=== PATIENT | female | born 1940 | race Caucasian/White ===

== ENCOUNTER → 2017-08-22 | Outpatient (CLI) | payer MEDICARE, BC ==
[2015-03-08 11:47] VITALS: BMI 40.2
[~2017-08-22] MED LIST: AMLO2.5T75 PO; ANAS1TAB34 PO; ATOR20TA22 PO; ATR80PT PO; BEN100 PO; CALC1TAB32 PO; CALC500T6 PO; CALCIUM PO; CEFA-162 PO; CHOL100058 PO; COM14R INH; DICY10CA11 PO; DICY20TA70 PO; DOCU-416 PO; FOL1 PO; HYDR12.561 PO; HYO375 PO; IRON1TAB10 PO; IRON1TAB4 PO; LOR5 PO; LOSA50TA72 PO; MULT-1335 PO; MULT1TAB64 PO; NAPR220C12 PO; OXYC-854 PO; OXYC-865 PO; PEG4000S17 PO; PRE10 PO; RIVA10TA PO; SUL500 PO
[2017-08-22 08:56] VITALS: BP 173/96
== END ==
LOC: SPU 07:39
PROVIDERS: ATTEND Nurse Practitioner Family
DX: E78.5 Hyperlipidemia, unspecified (principal); I10 Essential (primary) hypertension
CPT/HCPCS: 36415; 82465; 83718; 84443; 84478

== ENCOUNTER 2017-08-27 00:13 | Day surgery (SDC) | payer MEDICARE, BC ==
[2015-03-08 11:47] VITALS: Ht 157.5 cm; Wt 91.2 kg
[~2017-08-27] VITALS: Ht 157.5 cm; Wt 91.2 kg
[2017-08-27] MEDS ORDERED: PROPOFOL EMUL(*) 10MG/ML 20 ML 20 ML ONE ×2 (07:04→09:29)
[2017-08-27 07:35] VITALS: BP 144/87
[2017-08-27] MEDS ORDERED: MIDAZOLAM 2 MG/2 ML VIAL IVP PRN (08:45)
[2017-08-27] MEDS ORDERED: LIDOCAINE/SOD BICARB 8.4% SYR ID ONE (08:45)
[2017-08-27] MEDS ORDERED: NORMOSOL R SOLN(*) 1000 ML BAG 1,000 ML IV PRN (08:45)
[2017-08-27 09:53] VITALS: BP 116/64
[2017-08-27 10:00] VITALS: BP 123/76
--- NOTE | 2017-08-27 10:01 | Short(Outpt) Discharge Summary ---
Discharge Summary Reason for Hosp/Final Diag: (1) Colon cancer screening Status: Chronic Hospital Course & Plan: Colonoscopy with polypectomy x2 completed without problems. Departure Discharge to: Home, Self Care Discharge Instructions Home Meds Active Scripts Hydrochlorothiazide (HYDROCHLOROTHIAZIDE) 12.5 Mg Tablet, 1 TAB PO QDAY, #90 TAB 1 Refill Prov:WILBUR LOPEZ [facility]-C 08/12/17 Peg 3350/Na Sulf,Bicarb,Cl/Kcl (GAVILYTE-C SOLUTION) 4,000 Ml Soln.recon, 1 GAL PO ONCE, #1 GAL 0 Refills Prov:SAI CORREA MD 08/08/17 Anastrozole (ANASTROZOLE) 1 Mg Tablet, 1 MG PO DAILY, #90 MG 3 Refills Prov:SOPHY [facility] ATTORNEY-BC, ONC 05/12/17 Reported Medications Dicyclomine Hcl (DICYCLOMINE HCL) 20 Mg Tablet, 0.5 MG PO DAILY 07/14/17 Atorvastatin Calcium (LIPITOR) 20 Mg Tablet, 1 TAB PO QDAY, TAB 07/14/17 Iron,Carbonyl/Ascorbic Acid (IRON 100-VITAMIN C TABLET) 1 Each Tablet, 1 EACH PO QDAY 01/07/17 Calcium Carb & Cit/Vitamin D3 (CALCIUM + D3 ER TABLET) 1 Each Tablet.er, 1 TAB PO DAILY 01/07/17 Naproxen Sodium (ALEVE) Unknown Strength Capsule, PO QDAY, CAPSULE 01/07/17 Losartan Potassium (LOSARTAN POTASSIUM) 50 Mg Tablet, 50 MG PO QDAY 09/12/16 Multivitamin (MULTI VITAMIN DAILY) 1 Each Tablet, 1 EACH PO DAILY 02/13/16 Folic Acid (Folic Acid) 1 Mg Tab, 1 MG PO QDAY 09/23/10 Sulfasalazine (Azulfidine (Or Equiv)) 500 Mg Tab, 500 MG PO DAILY 09/23/10 Diet: Regular Activity: As Tolerated Special Instructions: Your colonoscopy was completed without problems and your prep was excellent (Good Job!!). I removed 2 polyps from your colon and they were sent to pathology for analysis. My office will call you in the next week to let you know what the polyps are and when your next colonoscopy should be (either 5 or 10 years depending on the pathology results). SAI CORREA MD Aug 27, 2017 10:01
[2017-08-27 10:15] VITALS: BP 135/70
[2017-08-27 10:21] VITALS: BP 135/77
[2017-08-27 10:25] VITALS: BP 125/72
== END 2017-08-27 10:40 | disposition home or self-care (01) ==
LOC: OR 00:13
PROVIDERS: ATTEND Surgery
DX: Z12.11 Encounter for screening for malignant neoplasm of colon (principal); D12.5 Benign neoplasm of sigmoid colon; K63.5 Polyp of colon
CPT/HCPCS: 00811; 45385; 88305; J2704

== ENCOUNTER 2017-08-28 13:22 | Outpatient (RCR) | payer MEDICARE, BC ==
[2015-03-08 11:47] VITALS: Wt 93.0 kg
[2017-08-22 09:00] LABS: PLATELET COUNT, AUTOMATED 230 K/uL (150-450)
[2017-08-28 13:27] VITALS: BP 148/83
--- NOTE | 2017-08-28 18:37 | ONCOLOGY FOLLOW UP NOTE ---
EVENT DATE: August 28, 2017 DIAGNOSES 1. Left breast cancer. 2. Hypertension. 3. Hypercholesterolemia. CHIEF COMPLAINT Patient is here today for followup of her left breast cancer. ONCOLOGY HISTORY The patient is a 76-year-old female who was found to have abnormal mammogram of the left breast. The patient ended by having left breast biopsy done on January 16, 2016 and the biopsy came back positive for infiltrating ductal carcinoma, grade II-III. ER positive 84.1%, UT positive 84.3%. HER2/reinaldo negative. Ki-67 was 3.6 and p53 was 0.1%. The patient, after that, had wire localization lumpectomy and sentinel lymph node biopsy done on February 22, 2016. The pathology came back positive for 1.1 cm invasive ductal carcinoma, well- differentiated. Three sentinel lymph nodes came back negative; so, her tumor in general was positive for invasive ductal carcinoma, grade I, well- differentiated. The size of the tumor is 0.6 cm. Additional margins were taken also and came back negative. Three sentinel lymph nodes came back negative for metastasis. So, her tumor was staged as stage IA (pt1b N0 M0). The patient received adjuvant radiation therapy and tolerated treatment very well. She started adjuvant hormonal therapy with Arimidex 1 mg daily on May 23, 2016. HISTORY OF PRESENT ILLNESS Patient is here today for followup of her left breast cancer. Ignacia is doing very well currently except for arthritis mainly in her back and knees, but other than that, she is really doing very well. She had her colonoscopy done on August 27, 2017 and it was normal as per patient. PAST MEDICAL HISTORY Hypertension. PAST SURGICAL HISTORY 1. Left hip replacement. 2. Right knee replacement. 3. Tonsillectomy. 4. Right shoulder repair. 5. Appendectomy. FAMILY HISTORY Negative for cancer or blood diseases. SOCIAL HISTORY The patient is a with two children. 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 She quit smoking in 1991 after 1-1/2 packs a day for nearly over thirty years. Denies any abuse of alcohol or illicit drugs. CURRENT MEDICATIONS 1. Iron 100-Vitamin C tablet, one tablet daily. 2. Multivitamins one tablet daily. 3. Dicyclomine hydrochloride 10 mg daily. 4. Folic acid 1 mg daily. 5. Atorvastatin 20 mg daily. 6. Sulfasalazine 500 mg daily. ALLERGIES ASPIRIN, which causes itchy skin rash. REVIEW OF SYSTEMS CONSTITUTIONAL: The patient has some hot flashes. HEENT: Ears: No tinnitus or hearing problem. Nose: No nasal discharge or epistaxis. Throat: No sore throat or mouth ulcers. Eyes: No diplopia or visual changes. RESPIRATORY/BREAST/SKIN: She felt two lumps in her left breast and another lump on the moravian of the right side of the face.. CARDIOVASCULAR: No chest pain, orthopnea, or paroxysmal nocturnal dyspnea (PND) . No edema. No palpitations. GASTROINTESTINAL: No nausea or vomiting. No diarrhea or constipation. No change in bowel movements. No heartburn or swallowing difficulties. No abdominal pain. No jaundice. No hematemesis, melena or rectal bleeding. GENITOURINARY: No hematuria or dysuria. MUSCULOSKELETAL: She has arthritis in the back and knees. NEUROLOGICAL: She has occasional neuropathy in her hands. HEMATOLOGIC/LYMPHATIC: No bleeding or easy bruising. No weakness or fatigue. No enlarged lymph nodes. SKIN: No skin rash or lumps. PSYCHIATRIC: No anxiety or depression. PHYSICAL EXAMINATION GENERAL: Looks stable. Well-developed, well-nourished, and in no acute distress. VITAL SIGNS: Blood pressure 148/83, pulse 98 per minute, respirations 16 per minute, temperature 97.6, pulse ox 85% on room air. HEENT: Head: Atraumatic. No sinus tenderness to palpation. There is a fatty lipoma on the moravian of the right side of the face which is small, around 1 cm in diameter. Eyes: No icterus or conjunctivitis. Mouth and throat: No oral thrush or mucositis. NECK: Supple. No cervical or supraclavicular lymphadenopathy. LEFT BREAST: The palpable lymph node on the medial side of the left breast is again palpated firm and mildly tender, but it is of the same size, like her last visit, without any changes. LUNGS: Clear to auscultation and percussion bilaterally. HEART: Regular rate and rhythm. No gallops, murmurs, clicks or rubs. ABDOMEN: Soft and lax. No tenderness. No hepatosplenomegaly. No masses. EXTREMITIES: No cyanosis, clubbing or edema. LYMPHATICS: No peripheral lymphadenopathy. NEUROLOGICAL: Conscious, alert and oriented times three. No focal motor or sensory deficits. PSYCHIATRIC: Mood and affect appear normal. SKIN: No skin rash, bruise or purpuric eruption. No palpable breast masses or axillary adenopathy DIAGNOSTIC DATA CBC showed white count of 5.5, hemoglobin 14.4, hematocrit 42.6, platelets 230, 000. Chem panel is totally normal. CA 27-29 is normal at 18.4. ASSESSMENT 1. Stage IA (pT1b pN0 cM0) left breast invasive ductal carcinoma grade 1/3. Three sentinel lymph nodes were negative for metastasis. ER/UT positive, HER2/ reinaldo negative. Ki-67 was low at 3.6%. Tumor size was 0.6 cm. Patient finished adjuvant radiation therapy and she started adjuvant hormonal therapy with Arimidex 1 mg daily on May 23, 2016. She is doing fine currently, tolerating treatment very well without any complications. I am planning to continue the same treatment for a total of five years. I will see her again in four months with CBC, chem panel and CA 27-29. Her current CA 27-29 is normal at 18.4. 2. Hypertension on treatment. 3. Hypercholesterolemia on treatment. PLAN 1. Continue Arimidex 1 mg daily. 2. Patient to return in 4 months with CBC, chem panel, CA 27-29. 3. Patient is to contact us for any new concerns or complaints. 4. We will check her screening mammography with her next visit in December 2017. LEEROY
== END 2017-09-10 14:33 | disposition home or self-care (01) ==
LOC: ONC 13:22
PROVIDERS: ATTEND Internal Medicine Hematology
DX: C50.112 Malignant neoplasm of central portion of left female breast (principal); Z17.0 Estrogen receptor positive status [ER+]; I10 Essential (primary) hypertension; E78.5 Hyperlipidemia, unspecified; E78.00 Pure hypercholesterolemia, unspecified; Z79.811 Long term (current) use of aromatase inhibitors; Z92.3 Personal history of irradiation
CPT/HCPCS: 36415; 82040; 82247; 82310; 82374; 82435; 82465; 82565; 82947; 83718; 84075; 84132; 84155; 84295; 84443; 84450; 84460; 84478; 84520; 85025; 86300

== ENCOUNTER 2018-01-08 08:44 | Outpatient (RCR) | payer MEDICARE, BC ==
[2015-03-08 11:47] VITALS: Wt 94.2 kg
[2018-01-01 08:47] VITALS: BP 158/80
[2018-01-01 09:27] LABS: PLATELET COUNT, AUTOMATED 205 K/uL (150-450)
--- NOTE | 2018-01-02 10:57 | RADIOLOGY IMAGING REPORT ---
FACILITY: [facility] - [place] PATIENT NAME: JENNIFER HALL : [id number] MR: [id number] V: [id number] EXAM DATE: [id number] ORDERING PHYSICIAN: PRAVEEN ALICEA TECHNOLOGIST: Elise Rebolledo PROCEDURE:BILATERAL DIGITAL SCREENING MAMMOGRAM WITH CAD ASSISTED INTERPRETATION & 3D TOMOSYNTHESIS COMPARISON:Prior mammograms multiple priors most recently 12/30/16 & 09/03/16 as well as imaging from 2016 at the time of cancer diagnosis. INDICATIONS:SCREENING, PREVIOUS RIGHT LUMPECTOMY. FINDINGS: The breasts have predominantly fatty parenchymal density apart from the asymmetry associated with the lumpectomy site on the Left. There are a few benign appearing dystrophic calcifications developing within this. No new mammographic findings otherwise concerning for malignancy. DIAGNOSTIC CATEGORY 2: BENIGN FINDING. RECOMMENDATIONS: ROUTINE MAMMOGRAM AND CLINICAL EVALUATION IN 1 YEAR. IMPRESSION: BIRADS 2: Benign finding. Dictated by: Tariq Peters on 01/01/2018 at 9:55 Transcribed by: ANDREW on 01/01/2018 at 11:15 Approved by: Tariq Peters on 01/01/2018 at 13:47 [facility]
[~2018-01-08 08:44] MED LIST changes: +SULF500T48 PO
[2018-01-08 09:07] VITALS: BP 151/88
[2018-01-08] MEDS ORDERED: DICY10CA11 PO (10:06)
--- NOTE | 2018-01-08 16:39 | ONCOLOGY FOLLOW UP NOTE ---
EVENT DATE: January 08, 2018 DIAGNOSES 1. Left breast cancer. 2. Hypertension. 3. Hypercholesterolemia. CHIEF COMPLAINT Patient is here today for followup of her left breast cancer. ONCOLOGY HISTORY The patient is a 77-year-old female who was found to have abnormal mammogram of the left breast. The patient ended by having left breast biopsy done on January 16, 2016 and the biopsy came back positive for infiltrating ductal carcinoma, grade II-III. ER positive 84.1%, IL positive 84.3%. HER2/reinaldo negative. Ki-67 was 3.6 and p53 was 0.1%. The patient, after that, had wire localization lumpectomy and sentinel lymph node biopsy done on February 22, 2016. The pathology came back positive for 1.1 cm invasive ductal carcinoma, well- differentiated. Three sentinel lymph nodes came back negative; so, her tumor in general was positive for invasive ductal carcinoma, grade I, well- differentiated. The size of the tumor is 0.6 cm. Additional margins were taken also and came back negative. Three sentinel lymph nodes came back negative for metastasis. So, her tumor was staged as stage IA (pt1b N0 M0). The patient received adjuvant radiation therapy and tolerated treatment very well. She started adjuvant hormonal therapy with Arimidex 1 mg daily on May 23, 2016. HISTORY OF PRESENT ILLNESS Patient is here today for followup of her left breast cancer. She is doing fine currently. She has some hot flashes occasionally with night sweating. She has pain in her left knee and the patient is scheduled to have left knee replacement on February 17, 2018. She has occasional numbness in her left fingers. PAST MEDICAL HISTORY Hypertension. PAST SURGICAL HISTORY 1. Left hip replacement. 2. Right knee replacement. 3. Tonsillectomy. 4. Right shoulder repair. 5. Appendectomy. FAMILY HISTORY Negative for cancer or blood diseases. SOCIAL HISTORY The patient is a with two children. 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 She quit smoking in 1991 after 1-1/2 packs a day for nearly over thirty years. Denies any abuse of alcohol or illicit drugs. CURRENT MEDICATIONS 1. Iron 100-Vitamin C tablet, one tablet daily. 2. Multivitamins one tablet daily. 3. Dicyclomine hydrochloride 10 mg daily. 4. Folic acid 1 mg daily. 5. Atorvastatin 20 mg daily. 6. Sulfasalazine 500 mg daily. 7. Anastrazole 1 mg daily. ALLERGIES ASPIRIN, which causes itchy skin rash. REVIEW OF SYSTEMS CONSTITUTIONAL: The patient has occasional hot flashes. HEENT: Ears: No tinnitus or hearing problem. Nose: No nasal discharge or epistaxis. Throat: No sore throat or mouth ulcers. Eyes: No diplopia or visual changes. RESPIRATORY/BREAST/SKIN: She felt two lumps in her left breast and another lump on the denominational of the right side of the face.. CARDIOVASCULAR: No chest pain, orthopnea, or paroxysmal nocturnal dyspnea (PND) . No edema. No palpitations. GASTROINTESTINAL: No nausea or vomiting. No diarrhea or constipation. No change in bowel movements. No heartburn or swallowing difficulties. No abdominal pain. No jaundice. No hematemesis, melena or rectal bleeding. GENITOURINARY: No hematuria or dysuria. MUSCULOSKELETAL: She has pain in her left knee. NEUROLOGICAL: She has numbness in the fingers sometimes. HEMATOLOGIC/LYMPHATIC: No bleeding or easy bruising. No weakness or fatigue. No enlarged lymph nodes. SKIN: No skin rash or lumps. PSYCHIATRIC: No anxiety or depression. PHYSICAL EXAMINATION GENERAL: Looks stable. Well-developed, well-nourished, and in no acute distress. VITAL SIGNS: Blood pressure 151/88, pulse 100 per minute, respirations 16 per minute, temperature 97.6, pulse ox 92% on room air. HEENT: Head: Atraumatic. No sinus tenderness to palpation. There is a fatty lipoma on the denominational of the right side of the face which is small, around 1 cm in diameter. Eyes: No icterus or conjunctivitis. Mouth and throat: No oral thrush or mucositis. NECK: Supple. No cervical or supraclavicular lymphadenopathy. LEFT BREAST: The palpable lymph node on the medial side of the left breast is again palpated firm and mildly tender, but it is of the same size, like her last visit, without any changes. LUNGS: Clear to auscultation and percussion bilaterally. HEART: Regular rate and rhythm. No gallops, murmurs, clicks or rubs. ABDOMEN: Soft and lax. No tenderness. No hepatosplenomegaly. No masses. EXTREMITIES: No cyanosis, clubbing or edema. LYMPHATICS: No peripheral lymphadenopathy. NEUROLOGICAL: Conscious, alert and oriented times three. No focal motor or sensory deficits. PSYCHIATRIC: Mood and affect appear normal. SKIN: No skin rash, bruise or purpuric eruption. No palpable breast masses or axillary adenopathy DIAGNOSTIC DATA CBC showed white count of 5.1, hemoglobin 13.7, hematocrit 39.8, platelets 205, 000. Chem panel is totally normal except blood sugar 142, total protein 6.12. Other parameters are normal. CA 27-29 is normal at 11.8, which is down from 18..4 last visit. ASSESSMENT 1. Stage IA (pT1b pN0 cM0) left breast invasive ductal carcinoma grade 1/3. Three sentinel lymph nodes were negative for metastasis. ER/IL positive, HER2/ reinaldo negative. Ki-67 was low at 3.6%. Tumor size was 0.6 cm. Patient finished adjuvant radiation therapy and she started adjuvant hormonal therapy with Arimidex 1 mg daily on May 23, 2016. She is doing fine currently and tolerating treatment very well except for occasional hot flashes. I am planning to see her again in three months with CBC, chem panel and CA 27-29 prior to her next visit. Her current CA 27-29 is 11.8 which is down from 18.4. 2. Hypertension, on treatment. 3. Hypercholesterolemia, on treatment. PLAN 1. Continue Arimidex 1 mg daily. 2. Patient to return in three months with CBC, chem panel and CA 27-29. 3. Patient is to contact us for any new concerns or complaints. [facility]
== END 2018-01-09 09:49 | disposition home or self-care (01) ==
LOC: ONC 08:44
PROVIDERS: ATTEND Internal Medicine Hematology
DX: C50.112 Malignant neoplasm of central portion of left female breast (principal); E78.5 Hyperlipidemia, unspecified; I10 Essential (primary) hypertension; Z17.0 Estrogen receptor positive status [ER+]; Z12.31 Encounter for screening mammogram for malignant neoplasm of breast; Z87.891 Personal history of nicotine dependence
CPT/HCPCS: 36415; 77063; 77067; 85025; 86300; G0463; 82040; 82247; 82310; 82374; 82435; 82565; 82947; 84075; 84132; 84155; 84295; 84450; 84460; 84520; 99212

== ENCOUNTER → 2018-01-21 | Outpatient (CLI) | payer MEDICARE, BC ==
[2015-03-08 11:47] VITALS: BMI 40.2
--- NOTE | 2018-01-21 09:16 | EKG ---
FACILITY: [facility] PATIENT NAME: JENNIFER HALL : [id number] MR: [id number] V: [id number] EXAM DATE: ORDERING PHYSICIAN: SAI BHATTI TECHNOLOGIST: MUMTAZ Marie Reason : PREOP-KNEE Blood Pressure : / mmHG Vent. Rate : 090 BPM Atrial Rate : 090 BPM P-R Int : 168 ms QRS Dur : 080 ms QT Int : 378 ms P-R-T Axes : 051 -15 064 degrees QTc Int : 462 ms Normal sinus rhythm R wave progression consistent with old ant/sep CT vs lead placement When compared with ECG of 22-FEB-2016 08:14, premature ventricular complexes are no longer present Poor R wave progression now seen. Confirmed by STACY HERNANDEZ ([id number]) on 01/21/2018 2:25:12 PM Referred By: Confirmed By:STACY HERNANDEZ
== END ==
LOC: LAB 08:22
PROVIDERS: ATTEND Anesthesiology
DX: Z01.810 Encounter for preprocedural cardiovascular examination (principal); Z01.812 Encounter for preprocedural laboratory examination; M17.12 Unilateral primary osteoarthritis, left knee
CPT/HCPCS: 81001; 93005

== ENCOUNTER 2018-01-30 18:51 | Emergency (ER) | payer MEDICARE, BC ==
[2015-03-08 11:47] VITALS: Wt 93.9 kg
--- NOTE | 2018-01-30 19:14 | ER Report ---
History and Physical Time Seen By MD: 19:05 Hx. of Stated Complaint: PT REPORTS THAT RECRUITER SPECIALIST SENT HER HERE WITH POSSIBLE BLOOD CLOTS. HPI/ROS CHIEF COMPLAINT: here for CT scan to rule out PE HISTORY OF PRESENT ILLNESS: This is a 77 year old female. She was seen by cardiology for a pre-operative evaluation. She was having some tachycardia and had an elevated d-dimer during their workup. Sent here for CT scan to rule out PE. She is having further cardiac workup with echocardiogram next week. She denies chest pain. She is not short of breath. Allergies: Coded Allergies: aspirin (Verified Allergy, Severe, ANAPHYLAXIS-BREAKS OUT IN A RASH, ) Home Meds Active Scripts Dicyclomine Hcl (DICYCLOMINE HCL) 10 Mg Capsule, 1 CAP PO DAILY, #90 CAPSULE 3 Refills Prov:WILBUR LOPEZ APRN [employer] SUPERVISOR-C 01/08/18 Sulfasalazine (SULFASALAZINE) 500 Mg Tablet, 1 TAB PO DAILY, #90 TAB 1 Refill Prov:WILBUR OLPEZ APRN [employer]ER SUPERVISOR-C 12/12/17 Atorvastatin Calcium (LIPITOR) 20 Mg Tablet, 1 TAB PO QDAY, #90 TAB 3 Refills Prov:WILBUR LOPEZ APRN [employer] SUPERVISOR-C 12/11/17 Hydrochlorothiazide (HYDROCHLOROTHIAZIDE) 12.5 Mg Tablet, 1 TAB PO QDAY, #90 TAB 1 Refill Prov:WILBUR LOPEZ APRN [employer] SUPERVISOR-C 08/12/17 Anastrozole (ANASTROZOLE) 1 Mg Tablet, 1 MG PO DAILY, #90 MG 3 Refills Prov:SOPHY WARREN P[employer]ER SUPERVISOR-BC, ONC 05/12/17 Reported Medications Iron,Carbonyl/Ascorbic Acid (IRON 100-VITAMIN C TABLET) 1 Each Tablet, 1 EACH PO QDAY 01/07/17 Calcium Carb & Cit/Vitamin D3 (CALCIUM + D3 ER TABLET) 1 Each Tablet.er, 1 TAB PO DAILY 01/07/17 Naproxen Sodium (ALEVE) Unknown Strength Capsule, PO QDAY, CAPSULE 01/07/17 Losartan Potassium (LOSARTAN POTASSIUM) 50 Mg Tablet, 50 MG PO QDAY 09/12/16 Multivitamin (MULTI VITAMIN DAILY) 1 Each Tablet, 1 EACH PO DAILY 02/13/16 Folic Acid (Folic Acid) 1 Mg Tab, 1 MG PO QDAY 09/23/10 Reviewed Nurses Notes: Yes Hx Smoking: Yes (quit [id number] ppd 40yr) Smoking Status: Former Smoker Hx Substance Use Disorder: No Hx Alcohol Use: Yes Constitutional Vital Sign - Last 24 Hours 01/30/18 01/30/18 01/30/18 01/30/18 18:55 18:56 19:00 19:06 Temp 97.9 Pulse 110 109 Resp 16 18 B/P (MAP) 145/80 (101) 145/80 129/97 (108) Pulse Ox 90 88 O2 Delivery Room Air 01/30/18 01/30/18 01/30/18 01/30/18 19:15 19:21 19:30 19:36 Pulse 111 111 Resp 16 11 B/P (MAP) 130/116 (121) 120/70 (87) Pulse Ox 87 88 01/30/18 01/30/18 01/30/18 01/30/18 19:51 20:00 20:06 20:21 Pulse 115 107 103 Resp 16 17 11 B/P (MAP) 132/66 (88) Pulse Ox 88 87 88 01/30/18 01/30/18 01/30/18 20:36 20:40 20:55 Pulse 102 100 102 Resp 16 14 19 Pulse Ox 90 90 91 Intake and Output 01/30/18 01/30/18 01/31/18 15:00 23:00 07:00 Intake Total 1000 ml Balance 1000 ml Physical Exam General Appearance: The patient is alert. No acute distress. Respiratory: Lungs are clear to auscultation. Cardiovascular: Mild tachycardia, regular rhythm. No murmurs, gallops or rubs. No edema. Gastrointestinal: Abdomen is soft and non tender. Nondistended. Neurological: Alert and oriented x3. Musculoskeletal: No pain in ribs or back. DIFFERENTIAL DIAGNOSIS: After history and physical exam, differential diagnosis was considered for tachycardia with elevated d-dimer, need to rule out PE Medical Decision Making Data Points Result Diagram: 01/30/181914 Laboratory Hematology Test 01/30/18 19:15 Sodium Level 136 mmol/L (137-145) Potassium Level 3.6 mmol/L (3.5-5.0) Chloride Level 97 mmol/L (98-107) Carbon Dioxide Level 27 mmol/L (22-31) Blood Urea Nitrogen 22 mg/dl (7-18) Creatinine 1.20 mg/dl (0.52-1.04) Glomerular Filtration Rate Calc 43.7 Random Glucose 105 mg/dl (75-110) Calcium Level 9.4 mg/dl (8.4-10.2) Total Bilirubin 0.6 mg/dl (0.2-1.3) Aspartate Amino Transf (AST/SGOT) 30 U/L (0-35) Alanine Aminotransferase (ALT/SGPT) 31 U/L (0-56) Alkaline Phosphatase 74 U/L (0-126) Total Protein 7.3 g/dl (6.3-8.2) Albumin 4.7 g/dl (3.5-5.0) Chemistry Test 01/30/18 19:15 Glomerular Filtration Rate Calc 43.7 Calcium Level 9.4 mg/dl (8.4-10.2) Total Bilirubin 0.6 mg/dl (0.2-1.3) Aspartate Amino Transf (AST/SGOT) 30 U/L (0-35) Alanine Aminotransferase (ALT/SGPT) 31 U/L (0-56) Alkaline Phosphatase 74 U/L (0-126) Total Protein 7.3 g/dl (6.3-8.2) Albumin 4.7 g/dl (3.5-5.0) EKG/Imaging Imaging CT angiogram chest with contrast Indication: Tachycardia. Elevated d-dimer. History of breast cancer. Comparison: CT of the chest on 01/29/2016. Technique: Axial CT images are obtained through the chest after administration of 75 mL Isovue 370 IV contrast. Reformatted coronal and sagittal images were reviewed as well as coronal MIP images. One of the following dose optimization techniques was utilized in the performance of this exam: automated exposure control; adjustment of the mA and/ or kV according to the patient's size; or use of an iterative reconstruction technique. Specific details can be referenced in the facility's radiology CT exam operational policy. FINDINGS: No evidence of filling defect within the pulmonary vasculature to suggest pulmonary embolus. Heart is normal size without pericardial effusion. Aorta shows no aneurysm or dissection. The mediastinum and hilar regions show no enlarged lymph node with a couple small stable lymph nodes. No abnormal density seen mediastinum. Lungs show no consolidations, pleural effusion or pneumothorax. Mild scarring seen left lower lobe. No discrete nodule or focal interstitial opacities. Airways are clear. Bony structures show no acute fractures or aggressive bony lesions. There is a stable small lucency in the right side of the T9 vertebral body. Indeterminate at this time but unchanged. Degenerative changes spine. Posttraumatic and degenerative changes in the left shoulder. Chest wall shows postsurgical changes to the left breast without focal abnormality. No chest wall masses or enlarged axillary lymph nodes. Thyroid is again a multinodular. Stable cyst seen in the superior aspect of the liver. Small hiatal hernia. Upper abdomen is otherwise unremarkable. IMPRESSION: 1. No evidence of pulmonary embolus. 2. No acute cardiothoracic abnormality 3. Other stable chronic findings as above. Report Dictated By: Edmar Castaneda at 01/30/2018 8:31 PM ED Course/Re-evaluation Clinical Indication for ER IV: Hydration, IV Access ED Course CMP done and shows some renal insufficiency. CTA obtained and a liter of normal saline given afterward. Negative for PE. She will follow-up with cardiology as planned. Decision to Disposition Date: Jan 30, 2018 Decision to Disposition Time: 20:55 Depart Departure Latest Vital Signs Vital Signs Date Time Temp Pulse Resp B/P (MAP) Pulse Ox O2 Delivery O2 Flow Rate FiO2 01/30/18 20:55 102 19 91 01/30/18 20:00 132/66 (88) 01/30/18 18:56 97.9 Room Air Impression: Primary Impression: Tachycardia Condition: Improved Disposition: HOME OR SELF-CARE Referrals: WILBUR LOPEZ APRN P[employer]ER SUPERVISOR-C (PCP) Patient Instructions: Tachycardia (ED) Additional Instructions: Follow-up with cardiology for your echocardiogram and further evaluation. CT scan tonight did not show evidence of a blood clot in the lungs. No changes to medications at this time. SUKUMAR MATSON MD Jan 30, 2018 19:13
[2018-01-30] MEDS ORDERED: NS(*) 0.9% 50 ML BAG 50 ML ONE (19:54)
[2018-01-30] MEDS ORDERED: IOPAMIDOL 76% 75 ML INFUS BTL 75 ML ONE (19:54)
[2018-01-30 20:00] VITALS: BP 132/66
[2018-01-30] MEDS ORDERED: NS(*) 0.9% 1000 ML BAG 1,000 ML IV ONE (20:05)
--- NOTE | 2018-01-30 20:45 | RADIOLOGY IMAGING REPORT ---
FACILITY: [facility] PATIENT NAME: Ignacia Nails : 1940 MR: [id number] V: [id number] EXAM DATE: ORDERING PHYSICIAN: SUKUMAR MATSON TECHNOLOGIST: Location: [facility] Patient: Ignacia Nails : 1940 Visit/Account:[id number] Date of Sevice: 01/30/2018 CT angiogram chest with contrast Indication: Tachycardia. Elevated d-dimer. History of breast cancer. Comparison: CT of the chest on 01/29/2016. Technique: Axial CT images are obtained through the chest after administration of 75 mL Isovue 370 IV contrast. Reformatted coronal and sagittal images were reviewed as well as coronal MIP images. One of the following dose optimization techniques was utilized in the performance of this exam: auto mated exposure control; adjustment of the mA and/or kV according to the patient's size; or use of an iterative reconstruction technique. Specific details can be referenced in the facility's radiology C T exam operational policy. FINDINGS: No evidence of filling defect within the pulmonary vasculature to suggest pulmonary embolus. Heart is normal size without pericardial effusion. Aorta shows no aneurysm or dissection. The mediast inum and hilar regions show no enlarged lymph node with a couple small stable lymph nodes. No abnorma l density seen mediastinum. Lungs show no consolidations, pleural effusion or pneumothorax. Mild scarring seen left lower lobe. N o discrete nodule or focal interstitial opacities. Airways are clear. Bony structures show no acute fractures or aggressive bony lesions. There is a stable small lucency i n the right side of the T9 vertebral body. Indeterminate at this time but unchanged. Degenerative ira nges spine. Posttraumatic and degenerative changes in the left shoulder. Chest wall shows postsurgica l changes to the left breast without focal abnormality. No chest wall masses or enlarged axillary lym ph nodes. Thyroid is again a multinodular. Stable cyst seen in the superior aspect of the liver. Small hiatal hernia. Upper abdomen is otherwise unremarkable. IMPRESSION: 1. No evidence of pulmonary embolus. 2. No acute cardiothoracic abnormality 3. Other stable chronic findings as above. Report Dictated By: Edmar Castaneda at 01/30/2018 8:31 PM Report E-Signed By: Edmar Castaneda at 01/30/2018 8:40 PM WSN:[id number]
[2018-02-02] MEDS ORDERED: HYDR12.561 PO (15:41)
== END 2018-01-30 21:06 | disposition home or self-care (01) ==
LOC: ER 19:05
DX: R00.0 Tachycardia, unspecified (principal); Z87.891 Personal history of nicotine dependence; Z79.899 Other long term (current) drug therapy
CPT/HCPCS: 71275; 96360; 99284; J7030; J7050; Q9967; 82040; 82247; 82310; 82374; 82435; 82565; 82947; 84075; 84132; 84155; 84295; 84450; 84460; 84520

== ENCOUNTER 2018-02-17 00:37 | Observation (INO) | payer MEDICARE, BC ==
[2018-02-16 14:06] LABS: INR 0.97
[~2018-02-17] VITALS: Ht 157.5 cm; Wt 93.0 kg
[2018-02-17] VITALS (13 sets, daily range): BP systolic 124–149; BP diastolic 67–97
[2018-02-17] MEDS ORDERED: FAMOTIDINE 20 MG TAB PO ONE (06:30)
[2018-02-17] MEDS ORDERED: ceFAZolin(*) 2GM/D5W 50ML 50 ML IVPB ONE (06:30)
[2018-02-17] MEDS ORDERED: NORMOSOL R SOLN(*) 1000 ML BAG 1,000 ML IV PRN (06:30)
[2018-02-17] MEDS ORDERED: PREGABALIN 75 MG CAPSULE PO ONE (06:30)
[2018-02-17] MEDS ORDERED: ACETAMINOPHEN 500 MG TAB PO ONE (06:30)
[2018-02-17] MEDS ORDERED: MIDAZOLAM 2 MG/2 ML VIAL IVP PRN (06:30)
[2018-02-17] MEDS ORDERED: BACITRACIN 50000 UNIT/VIAL 100,000 UNIT in NS 0.9% 3000 ML IRRIGATION BAG 3,000 ML IR ONE (06:30)
[2018-02-17] MEDS ORDERED: CELECOXIB 200 MG CAP PO ONE (06:30)
[2018-02-17] MEDS ORDERED: TRANEXAMIC AC 1000 MG/10ML SDV 1,000 MG in DEXTROSE 5% 50 ML BAG 50 ML IV ONE (06:30)
[2018-02-17] MEDS ORDERED: cloNIDine EPIDUR INJ 100MCG/ML 40 MCG, ROPIVACAINE 0.5% 20 ML VIAL 25 ML, EPINEPHrine H... EPI ONE (06:30)
[2018-02-17] MEDS ORDERED: LIDOCAINE/SOD BICARB 8.4% SYR ID ONE (06:30)
[2018-02-17] MEDS ORDERED: MIDAZOLAM 2 MG/2 ML VIAL ONE (07:23)
[2018-02-17] MEDS ORDERED: ONDANSETRON 4 MG/2 ML VIAL ONE (07:23)
[2018-02-17] MEDS ORDERED: DEXAMETHASONE SOD PHOS 10MG/ML ONE (07:23)
[2018-02-17] MEDS ORDERED: PROPOFOL EMUL(*) 10MG/ML 20 ML 20 ML ONE (07:23)
[2018-02-17] MEDS ORDERED: LIDOCAINE MPF 1% 5 ML VIAL ONE (07:23)
[2018-02-17] MEDS ORDERED: fentaNYL CITR 100 MCG/2 ML AMP ONE ×2 (07:24→10:42)
[2018-02-17] MEDS ORDERED: PHENYLEPHRINE 10 MG/1 ML VIAL ONE (07:45)
--- NOTE | 2018-02-17 10:47 | RADIOLOGY IMAGING REPORT ---
FACILITY: [facility] [place] PATIENT NAME: Ignacia Nails : 1940 MR: [id number] V: [id number] EXAM DATE: ORDERING PHYSICIAN: SANDI DE LEÓN TECHNOLOGIST: Location: [facility] [place] Patient: Ignacia Nails : 1940 Visit/Account:[id number] Date of Sevice: 02/17/2018 Exam type: KNEE LIMITED LEFT History: POST OP LEFT TKA Comparison: None. Findings: There is left knee arthroplasty that appears in good anatomic alignment on the AP and lateral view. Soft tissue gas projects over the anterior aspect this postoperative knee IMPRESSION: 1. As above Report Dictated By: Amberly Hawthorne MD at 02/17/2018 10:43 AM Report E-Signed By: Amberly Hawthorne MD at 02/17/2018 10:44 AM WSN:[id number]
[2018-02-17] MEDS ORDERED: diphenhydrAMINE 25 MG CAP PO PRN (11:00)
[2018-02-17] MEDS ORDERED: ZOLPIDEM TARTRATE 5 MG TAB PO PRN (11:00)
[2018-02-17] MEDS ORDERED: BISACODYL 10 MG SUPP PR PRN (11:00)
[2018-02-17] MEDS ORDERED: MAGNESIUM CITRATE 300 ML BTL PO PRN (11:00)
[2018-02-17] MEDS ORDERED: diphenhydrAMINE 50 MG/ML VIAL IVP PRN (11:00)
[2018-02-17] MEDS ORDERED: ONDANSETRON 4 MG/2 ML VIAL IVP PRN (11:00)
[2018-02-17] MEDS ORDERED: MAGNESIUM HYDROXIDE* 30ML UDCP PO PRN (11:00)
[2018-02-17] MEDS ORDERED: HYDROmorphone HCL 2 MG/ML SDV IVP PRN (11:00)
[2018-02-17] MEDS ORDERED: LR 1000 ML BAG 1000 ML IV PRN (11:00)
[2018-02-17] MEDS ORDERED: FLUSH 10 ML SYR IVP PRN (11:00)
[2018-02-17] MEDS ORDERED: PROMETHAZINE 25 MG/ML 1 ML AMP IVP PRN (11:05)
--- NOTE | 2018-02-17 11:09 | OPERATIVE REPORT 1 ---
EVENT DATE: February 17, 2018 SURGEON: Alvin Blackmon MD ANESTHESIOLOGIST: Nathaniel Breaux MD ANESTHESIA: General plus spinal. DIESEL SCOOP OPERATOR: Jim Schmidt PA-C PREOPERATIVE DIAGNOSIS Left knee osteoarthritis. POSTOPERATIVE DIAGNOSIS Left knee osteoarthritis. PROCEDURE PERFORMED Left total knee arthroplasty. FINDINGS The patient had a significant amount of arthritic changes, especially on the medial compartment and a little bit towards the patellofemoral compartment and was amendable for a total knee replacement. ESTIMATED BLOOD LOSS 300 mL. DRAINS None. COMPLICATIONS None. TOURNIQUET TIME 16 minutes, which was only up during instrumentation. IMPLANTS USED DePuy Attune size 6 posterior stabilized narrow femur with a 5 rotating platform tibia, 6x7 rotating platform posterior stabilized tibial insert and 32 anatomic patella. SPECIMENS None. INDICATIONS/HISTORY This is a 77-year-old female who presented to my clinic for evaluation of bilateral knee arthritis a couple of years ago. We had replaced the right knee and she had very good relief associated with it so she wanted to go ahead with left knee replacement today, February 17, 2018. The risks and benefits were discussed with the patient and inform consent was obtained at the last clinic visit. DESCRIPTION OF PROCEDURE The patient was brought into the operating room. She and the procedure were both verified. She was placed in the sitting position and then given a spinal by anesthesia. She then was put in a spine position and intubated by anesthesia and the left lower extremity was prepped and draped in the usual fashion. A time-out was observed, verifying the correct patient and procedure. After making a standard incision over the anterior aspect of the knee, I was able to go through the skin and subcutaneous tissue and then go through medial parapatellar approach. Once I was able to go through the medial parapatellar approach, I was able to cauterize all bleeders throughout the entry and to the knee itself. I then was able to sublux the patella to the lateral side and high flex the knee up and remove the anterior aspect of the meniscus on each side and all the soft tissue off the front part including the anterior fat pad. I then was able to drill the intramedullary guide for the tibia after removing the ACL and PCL. This was then followed by putting the five and nine cutting block onto the distal femur, cutting the distal femur and then sizing it to a 6. Once I sized it to a 6, I was able to perform one cutting block on and cut the standard cut without any major difficulty and then put the notch cutting block on and cut out to a size 6 also. Once all the cuts were done, I then returned to the tibia, where I was able to clear off the rest of the posterior menisci after subluxing the tibia forward with a high flexion component to the knee. This was then followed by drilling the intramedullary guide for the Attune system and then cutting 2-3 mm off the medial side, which was a low side in this particular case using the slot guide associated with this. Once I was able to cut the tibia and make sure it was well-aligned with the alignment jenni, I was then able to size the tibia to a 5. We drilled the screws in place on this and then cut and drilled and put in the keel without any difficulty into the tibia. I then trialed components and the 7 mm poly was the best fit to allow for full extension and also to have no signs of instability associated with anterior drawer type test. The patella tracked normally also. I then was able to rosa isela the patella and cut the patella without any difficulty. We cut 7.5 mm off this and then sized to a 32 anatomic patella. This then tracked excellent with the trials and so therefore, the tourniquet was put up and the old components were removed. Once this was done, we then cemented in the final component with the 6 narrow posterior stabilized femur with the 5 rotating platform tibia. We then put in the poly insert, which was a 6/7 mm rotating platform posterior stabilized poly, and then cemented in the patella. Once everything was cemented it, the cement was hardened, the tourniquet was let back down and we irrigated with copious amounts of saline, which we had throughout the case, using pulsatile lavage. I then was able to close the parapatellar approach with a #1 Stratafix. This was followed by 2-0 Vicryl in the subcutaneous fat and subcutaneous 2-0 Stratafix was utilized followed by subcuticular 4-0 Monocryl. The wound was then dressed with a bio-occlusive dressing and the patient was awakened, extubated and transferred to PACU in stable condition, where she will be admitted overnight. LEEROY
[2018-02-17] MEDS ORDERED: NAPR220T86 PO (11:18)
--- NOTE | 2018-02-17 11:38 | Hospitalist Consultation ---
History of Present Illness Requesting Physician Dr. Blackmon Reason for Consult Medical Management Chief Complaint s/p left knee replacement History of Present Illness She was admitted s/p left knee replacement. It is reported the surgery went well and without complication. History Problems: (1) Breast cancer, left breast Status: Chronic (2) Crohn disease Status: Chronic (3) Hyperlipidemia Status: Chronic (4) HTN (hypertension) Status: Chronic Home Meds Active Scripts Hydrochlorothiazide (HYDROCHLOROTHIAZIDE) 12.5 Mg Tablet, 1 TAB PO QDAY, #90 TAB 0 Refills Prov:WILBUR LOPEZ APRN SOCIAL PSYCHOLOGIST-C 02/02/18 Dicyclomine Hcl (DICYCLOMINE HCL) 10 Mg Capsule, 1 CAP PO DAILY, #90 CAPSULE 3 Refills Prov:WILBUR LOPEZ APRN SOCIAL PSYCHOLOGIST-C 01/08/18 Sulfasalazine (SULFASALAZINE) 500 Mg Tablet, 1 TAB PO DAILY, #90 TAB 1 Refill Prov:WILBUR LOPEZ APRN SOCIAL PSYCHOLOGIST-C 12/12/17 Atorvastatin Calcium (LIPITOR) 20 Mg Tablet, 1 TAB PO QDAY, #90 TAB 3 Refills Prov:WILBUR LOPEZ APRN SOCIAL PSYCHOLOGIST-C 12/11/17 Anastrozole (ANASTROZOLE) 1 Mg Tablet, 1 MG PO DAILY, #90 MG 3 Refills Prov:SOPHY WARREN SOCIAL PSYCHOLOGIST-BC, ONC 05/12/17 Reported Medications Naproxen Sodium (NAPROXEN SODIUM) 220 Mg Tablet, 220 MG PO DAILY, TAB 02/17/18 Iron,Carbonyl/Ascorbic Acid (IRON 100-VITAMIN C TABLET) 1 Each Tablet, 1 EACH PO QDAY 01/07/17 Calcium Carb & Cit/Vitamin D3 (CALCIUM + D3 ER TABLET) 1 Each Tablet.er, 1 TAB PO DAILY 01/07/17 Losartan Potassium (LOSARTAN POTASSIUM) 50 Mg Tablet, 50 MG PO QDAY 09/12/16 Multivitamin (MULTI VITAMIN DAILY) 1 Each Tablet, 1 EACH PO DAILY 02/13/16 Folic Acid (Folic Acid) 1 Mg Tab, 1 MG PO QDAY 09/23/10 Allergies: Coded Allergies: aspirin (Verified Allergy, Severe, ANAPHYLAXIS-BREAKS OUT IN A RASH, 02/10/18) Patient History: COPD (chronic obstructive pulmonary disease) MOTHER Coronary artery bypass surgery MOTHER Hx Smoking: Yes (quit 1990-smoked 1 pack per week 40yr) Smoking Status: Former Smoker Exposure to Second Hand Smoke?: No Caffeine Intake: Coffee, Tea Caffeine/Cups Per Day: 1 cup/day, 30 oz of tea/day Hx Alcohol Use: Yes Alcohol Used: Wine, Liquor Hx Substance Use Disorder: No Social Drug Use: Never History of IV Drug Use: No Review of Systems All Systems Reviewed/Normal: Yes, Except as Noted Exam Vital Signs Vital Signs Date Time Temp Pulse Resp B/P (MAP) Pulse Ox O2 Delivery O2 Flow Rate FiO2 02/17/18 11:05 86 16 94 02/17/18 11:05 97.7 136/76 (96) Nasal Cannula 2.0 General Appearance: Alert, Awake, No Acute Distress, Afebrile Neuro: No Gross deficits Cardiovascular: Regular Rate and Rhythm Respiratory: No Respiratory Distress, Clear to Auscultation GI: Abd Soft and Non-Tender Psych: Alert & Oriented X3, Appropriate Mood & Affect Assessment and Plan Problems: (1) Status post left knee replacement Status: Acute Assessment & Plan: Followed by Dr. Blackmon. She will be placed on Xarelto for VTE prophylaxis, secondary to Aspirin allergy. She has no history of DVT or PE. (2) HTN (hypertension) Status: Chronic Assessment & Plan: She is on chronic treatment with Losartan and Hydrochlorothiazide. These medications have been restarted with hold parameters. (3) Hyperlipidemia Status: Chronic Assessment & Plan: She is on chronic treatment with Atorvastatin. (4) Crohn disease Status: Chronic Assessment & Plan: She is on chronic treatment with Sulfasalazine and Folic acid. (5) Breast cancer, left breast Status: Chronic Assessment & Plan: Been in remission for two years. She is on chronic treatment with Anastrozole. This has been held at this time. Venous Thromboembolism Antithrombotics Is Pt On Any Antithrombotics?: Yes Problem Qualifiers (1) HTN (hypertension): Hypertension type: essential hypertension Qualified Codes: I10 - Essential (primary) hypertension ADELE SERRANO SOCIAL PSYCHOLOGIST Feb 17, 2018 11:38
[2018-02-17] MEDS ORDERED: NS(*) 0.9% 250 ML BAG 250 ML ONE (16:08)
[2018-02-17] MEDS: ceFAZolin(*) 2GM/D5W 50ML 50 ML IVPB SCH ×2 (16:08→23:15)
[2018-02-17] MEDS: ATORVASTATIN 10 MG TAB PO SCH (20:53)
[2018-02-18 05:09] VITALS: BP 152/88
[2018-02-18] MEDS: LOSARTAN POTASSIUM 50 MG TAB PO SCH (08:39)
[2018-02-18] MEDS: RIVAROXABAN 10 MG TAB PO SCH (08:39)
[2018-02-18] MEDS: HYDROCHLOROTHIAZIDE 25 MG TAB PO SCH (08:39)
[2018-02-18] MEDS: FOLIC ACID 1 MG TAB PO SCH (08:39)
[2018-02-18] MEDS: ceFAZolin(*) 2GM/D5W 50ML 50 ML IVPB SCH (08:39)
[2018-02-18] MEDS ORDERED: sulfaSALAzine 500 MG TAB PO SCH (09:00)
[2018-02-18 09:24] VITALS: BP 153/88
--- NOTE | 2018-02-18 09:32 | Hospitalist Progress Note ---
Subjective Progress Notes Subjective She has no complaints this morning. She had no acute events overnight. Patient Complains of: Cardiovascular: No: Chest Pain Respiratory: No: Shortness of Breath Physical Exam Vital Signs Date Time Temp Pulse Resp B/P (MAP) Pulse Ox O2 Delivery O2 Flow Rate FiO2 02/18/18 09:24 106 20 153/88 (109) 95 Nasal Cannula 3.0 02/18/18 05:09 98.2 Intake and Output 02/18/18 06:59 Intake Total 3540 ml Output Total 150 ml Balance 3390 ml Intake Oral 460 ml IV Total 1580 ml Other 1500 ml Output Estimated Blood Loss 150 ml # Voids 1 General Appearance: Alert, Awake, No Acute Distress, Afebrile Neuro: No Gross deficits Cardiovascular: Regular Rate and Rhythm Respiratory: No Respiratory Distress, Clear to Auscultation GI: Soft and Non-Tender Psych: Alert & Oriented X3, Appropriate Mood & Affect Result Diagram: 02/18/18 0556 Assessment and Plan Problems: (1) Status post left knee replacement Status: Acute Assessment & Plan: Followed by Dr. Blackmon. She will be placed on Xarelto for VTE prophylaxis, secondary to Aspirin allergy. She has no history of DVT or PE. (2) HTN (hypertension) Status: Chronic Assessment & Plan: She is on chronic treatment with Losartan and Hydrochlorothiazide. These medications have been restarted with hold parameters. (3) Hyperlipidemia Status: Chronic Assessment & Plan: She is on chronic treatment with Atorvastatin. (4) Crohn disease Status: Chronic Assessment & Plan: She is on chronic treatment with Sulfasalazine and Folic acid. (5) Breast cancer, left breast Status: Chronic Assessment & Plan: Been in remission for two years. She is on chronic treatment with Anastrozole. (6) Hypoxia Status: Acute Assessment & Plan: She is requiring 3liters of oxygen post-operatively. She will be sent home with oxygen to wear 24 hours per day. Exam Sepsis Risk: No Definite Risk Problem Qualifiers (1) HTN (hypertension): Hypertension type: essential hypertension Qualified Codes: I10 - Essential (primary) hypertension ADELE SERRANO STOCK MOVER Feb 18, 2018 09:32
[2018-02-18] MEDS ORDERED: RIV10 PO (11:02)
[2018-02-18 12:17] VITALS: BP 140/82
[2018-02-18 12:22] VITALS: Ht 157.5 cm; Wt 93.0 kg
[2018-02-18 15:27] VITALS: BP 152/81
[2018-02-18] MEDS ORDERED: sulfaSALAzine 500 MG TAB PO ONE (16:00)
[2018-02-18 18:56] VITALS: BP 159/89
[2018-02-18] MEDS: ATORVASTATIN 10 MG TAB PO SCH (21:24)
[2018-02-18 22:34] VITALS: BP 157/79
[2018-02-19 03:47] VITALS: BP 129/65
[2018-02-19 07:38] VITALS: BP 115/63
[2018-02-19] MEDS ORDERED: OXYC-865 PO (08:09)
[2018-02-19] MEDS: FOLIC ACID 1 MG TAB PO SCH (09:32)
[2018-02-19] MEDS: LOSARTAN POTASSIUM 50 MG TAB PO SCH (09:32)
[2018-02-19] MEDS: RIVAROXABAN 10 MG TAB PO SCH (09:32)
[2018-02-19] MEDS: HYDROCHLOROTHIAZIDE 25 MG TAB PO SCH (09:32)
--- NOTE | 2018-02-19 11:53 | Hospitalist Progress Note ---
Subjective Progress Notes Subjective She has no complaints this morning. She states she would like to go home. She had no acute events overnight. Patient Complains of: Cardiovascular: No: Chest Pain Respiratory: No: Shortness of Breath Physical Exam Vital Signs Date Time Temp Pulse Resp B/P (MAP) Pulse Ox O2 Delivery O2 Flow Rate FiO2 02/19/18 09:57 82 02/19/18 09:55 Nasal Cannula 3.0 02/19/18 07:38 98.1 83 16 115/63 (80) Intake and Output 02/19/18 00:59 Intake Total 546 ml Balance 546 ml Intake Oral 476 ml IV Total 70 ml # Voids 1 General Appearance: Alert, Awake, No Acute Distress, Afebrile Neuro: No Gross deficits Cardiovascular: Regular Rate and Rhythm Respiratory: No Respiratory Distress, Clear to Auscultation GI: Soft and Non-Tender Psych: Alert & Oriented X3, Appropriate Mood & Affect Result Diagram: 02/19/18 0529 Assessment and Plan Problems: (1) Status post left knee replacement Status: Acute Assessment & Plan: Followed by Dr. Blackmon. She will be placed on Xarelto for VTE prophylaxis, secondary to Aspirin allergy. She has no history of DVT or PE. (2) HTN (hypertension) Status: Chronic Assessment & Plan: She is on chronic treatment with Losartan and Hydroch lorothiazide. These medications have been restarted with hold parameters. (3) Hyperlipidemia Status: Chronic Assessment & Plan: She is on chronic treatment with Atorvastatin. (4) Crohn disease Status: Chronic Assessment & Plan: She is on chronic treatment with Sulfasalazine and Folic acid. (5) Breast cancer, left breast Status: Chronic Assessment & Plan: Been in remission for two years. She is on chronic treatment with Anastrozole. (6) Hypoxia Status: Acute Assessment & Plan: She is requiring 3 liters of oxygen post-operatively. She will be sent home with oxygen to wear 24 hours per day. Exam Sepsis Risk: No Definite Risk Problem Qualifiers (1) HTN (hypertension): Hypertension type: essential hypertension Qualified Codes: I10 - Essential (primary) hypertension ADELE SERRANO OBJECTS CONSERVATOR Feb 19, 2018 11:53
== END 2018-02-19 11:39 | disposition home or self-care (01) ==
LOC: OR 00:37 → MED 11:08
PROVIDERS: ADMIT Orthopaedic Surgery; ATTEND Orthopaedic Surgery
DX: M17.12 Unilateral primary osteoarthritis, left knee (principal); I10 Essential (primary) hypertension; I25.10 Atherosclerotic heart disease of native coronary artery without angina pectoris
CPT/HCPCS: 27447; 36415; 73560; 85014; 85018; 85610; 86850; 86900; 86901; 97110; 97116; 97161; 97530; A9270; C1713; C1776; G0378; J0171; J0735; J1100; J1170; J1885; J2001; J2250; J2370; J2405; J2704; J2795; J3010; J7050; J7060; J0690

== ENCOUNTER 2018-06-25 08:45 | Outpatient (RCR) | payer MEDICARE, BC ==
[2018-02-18 12:22] VITALS: Wt 96.6 kg
[2018-04-03 08:51] VITALS: BP 156/88
[2018-04-03 09:07] LABS: PLATELET COUNT, AUTOMATED 220 K/uL (150-450)
[2018-04-10 08:55] VITALS: BP 129/86
--- NOTE | 2018-04-10 09:56 | [facility] ONCOLOGY NOTE ---
EVENT DATE: April 10, 2018 DIAGNOSES 1. Left breast cancer. 2. Hypertension. 3. Hypercholesterolemia. CHIEF COMPLAINT Patient is here today for followup of her left breast cancer. ONCOLOGY HISTORY The patient is a 78-year-old female who was found to have abnormal mammogram of the left breast. The patient ended by having left breast biopsy done on January 16, 2016 and the biopsy came back positive for infiltrating ductal carcinoma, grade II-III. ER positive 84.1%, HI positive 84.3%. HER2/reinaldo negative. Ki-67 was 3.6 and p53 was 0.1%. The patient, after that, had wire localization lumpectomy and sentinel lymph node biopsy done on February 22, 2016. The pathology came back positive for 1.1 cm invasive ductal carcinoma, well- differentiated. Three sentinel lymph nodes came back negative; so, her tumor in general was positive for invasive ductal carcinoma, grade I, well- differentiated. The size of the tumor is 0.6 cm. Additional margins were taken also and came back negative. Three sentinel lymph nodes came back negative for metastasis. So, her tumor was staged as stage IA (pt1b N0 M0). The patient received adjuvant radiation therapy and tolerated treatment very well. She started adjuvant hormonal therapy with Arimidex 1 mg daily on May 23, 2016. HISTORY OF PRESENT ILLNESS Patient is here today for followup of her left breast cancer. She is doing fine currently. She has some pain in the hands sometimes and she has numbness over the hands occasionally at night but other than that she is really doing very well and tolerating treatment also very well. PAST MEDICAL HISTORY Hypertension. PAST SURGICAL HISTORY 1. Left hip replacement. 2. Right knee replacement. 3. Tonsillectomy. 4. Right shoulder repair. 5. Appendectomy. FAMILY HISTORY Negative for cancer or blood diseases. SOCIAL HISTORY The patient is a with two children. She is a retired [employer]. She quit smoking in 1991 after 1-1/2 packs a day for nearly over thirty years. Denies any abuse of alcohol or illicit drugs. CURRENT MEDICATIONS 1. Iron 100-Vitamin C tablet, one tablet daily. 2. Multivitamins one tablet daily. 3. Dicyclomine hydrochloride 10 mg daily. 4. Folic acid 1 mg daily. 5. Atorvastatin 20 mg daily. 6. Sulfasalazine 500 mg daily. 7. Anastrazole 1 mg daily. ALLERGIES ASPIRIN, which causes itchy skin rash. REVIEW OF SYSTEMS CONSTITUTIONAL: The patient has occasional hot flashes. HEENT: Ears: No tinnitus or hearing problem. Nose: No nasal discharge or epistaxis. Throat: No sore throat or mouth ulcers. Eyes: No diplopia or visual changes. RESPIRATORY/BREAST/SKIN: She felt two lumps in her left breast and another lump on the religious of the right side of the face.. CARDIOVASCULAR: No chest pain, orthopnea, or paroxysmal nocturnal dyspnea (PND). No edema. No palpitations. GASTROINTESTINAL: No nausea or vomiting. No diarrhea or constipation. No change in bowel movements. No heartburn or swallowing difficulties. No abdominal pain. No jaundice. No hematemesis, melena or rectal bleeding. GENITOURINARY: No hematuria or dysuria. MUSCULOSKELETAL: She has pain in the hands. NEUROLOGICAL: She has numbness in her hands occasionally. HEMATOLOGIC/LYMPHATIC: No bleeding or easy bruising. No weakness or fatigue. No enlarged lymph nodes. SKIN: No skin rash or lumps. PSYCHIATRIC: No anxiety or depression. PHYSICAL EXAMINATION GENERAL: Looks stable. Well-developed, well-nourished, and in no acute distress. VITAL SIGNS: Blood pressure 129/86, pulse 106 per minute, respirations 16 per minute, temperature 97.1, pulse ox 92% on room air. HEENT: Head: Atraumatic. No sinus tenderness to palpation. There is a fatty lipoma on the religious of the right side of the face which is small, around 1 cm in diameter. Eyes: No icterus or conjunctivitis. Mouth and throat: No oral thrush or mucositis. NECK: Supple. No cervical or supraclavicular lymphadenopathy. LEFT BREAST: The palpable lymph node on the medial side of the left breast is again palpated firm and mildly tender, but it is of the same size, like her last visit, without any changes. LUNGS: Clear to auscultation and percussion bilaterally. HEART: Regular rate and rhythm. No gallops, murmurs, clicks or rubs. ABDOMEN: Soft and lax. No tenderness. No hepatosplenomegaly. No masses. EXTREMITIES: No cyanosis, clubbing or edema. LYMPHATICS: No peripheral lymphadenopathy. NEUROLOGICAL: Conscious, alert and oriented times three. No focal motor or sensory deficits. PSYCHIATRIC: Mood and affect appear normal. SKIN: No skin rash, bruise or purpuric eruption. No palpable breast masses or axillary adenopathy DIAGNOSTIC DATA CBC showed white count of 5.1, hemoglobin 13.6, hematocrit 40.9, platelets 220,000. Chem panel is totally normal. CA 27-29 is normal at 19, which is also stable. . ASSESSMENT 1. Stage IA (pT1b pN0 cM0) left breast invasive ductal carcinoma grade 1/3. Three sentinel lymph nodes were negative for metastasis. ER/HI positive, HER2/reinaldo negative. Ki-67 was low at 3.6%. Tumor size was 0.6 cm. Patient finished adjuvant radiation therapy and she started adjuvant hormonal therapy with Arimidex 1 mg daily on May 23, 2016. She is tolerating treatment very well and she is doing also fine. Her tumor marker is normal and stable at 19. I am planning to see her again in three months with CBC, chem panel and CA 27- 29. Her current CA 27-29 is 19; last visit it was 18.4. 2. Hypertension, on treatment. 3. Hypercholesterolemia, on treatment. PLAN 1. Continue Arimidex 1 mg daily. 2. Patient to return in three months with CBC, chem panel and CA 27-29. 3. Patient is to contact us for any new concerns or complaints. MTDD
[2018-06-22 09:21] VITALS: BP 133/90
[2018-06-22 09:41] LABS: PLATELET COUNT, AUTOMATED 226 K/uL (150-450)
[~2018-06-25 08:45] MED LIST changes: +FOLI-68 PO; -LOSA50TA72 PO; +LOSA50TA80 PO; +NAPR220T86 PO; +RIV10 PO
[2018-06-25 08:58] VITALS: BP 143/83
--- NOTE | 2018-06-25 09:42 | EL-TARAB[facility] ONCOLOGY NOTE ---
EVENT DATE: June 25, 2018 DIAGNOSES 1. Left breast cancer. 2. Hypertension. 3. Hypercholesterolemia. CHIEF COMPLAINT Patient is here today for followup of her left breast cancer. ONCOLOGY HISTORY The patient is a 78-year-old female who was found to have abnormal mammogram of the left breast. The patient ended by having left breast biopsy done on January 16, 2016 and the biopsy came back positive for infiltrating ductal carcinoma, grade II-III. ER positive 84.1%, KS positive 84.3%. HER2/reinaldo negative. Ki-67 was 3.6 and p53 was 0.1%. The patient, after that, had wire localization lumpectomy and sentinel lymph node biopsy done on February 22, 2016. The pathology came back positive for 1.1 cm invasive ductal carcinoma, well- differentiated. Three sentinel lymph nodes came back negative; so, her tumor in general was positive for invasive ductal carcinoma, grade I, well- differentiated. The size of the tumor is 0.6 cm. Additional margins were taken also and came back negative. Three sentinel lymph nodes came back negative for metastasis. So, her tumor was staged as stage IA (pt1b N0 M0). The patient received adjuvant radiation therapy and tolerated treatment very well. She started adjuvant hormonal therapy with Arimidex 1 mg daily on May 23, 2016. HISTORY OF PRESENT ILLNESS Patient is here today for followup of her left breast cancer. She is doing fine currently except for hot flashes. She is complaining of arthritis and pain in her shoulders. She has occasional tingling and numbness in her hands. She is weak, tired and fatigued most of the time. PAST MEDICAL HISTORY Hypertension. PAST SURGICAL HISTORY 1. Left hip replacement. 2. Right knee replacement. 3. Tonsillectomy. 4. Right shoulder repair. 5. Appendectomy. FAMILY HISTORY Negative for cancer or blood diseases. SOCIAL HISTORY The patient is a with two children. 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 She quit smoking in 1991 after 1-1/2 packs a day for nearly over thirty years. Denies any abuse of alcohol or illicit drugs. CURRENT MEDICATIONS 1. Iron 100-Vitamin C tablet, one tablet daily. 2. Multivitamins one tablet daily. 3. Dicyclomine hydrochloride 10 mg daily. 4. Folic acid 1 mg daily. 5. Atorvastatin 20 mg daily. 6. Sulfasalazine 500 mg daily. 7. Anastrazole 1 mg daily. ALLERGIES ASPIRIN, which causes itchy skin rash. REVIEW OF SYSTEMS CONSTITUTIONAL: The patient has hot flashes. HEENT: Ears: No tinnitus or hearing problem. Nose: No nasal discharge or epistaxis. Throat: No sore throat or mouth ulcers. Eyes: No diplopia or visual changes. RESPIRATORY/BREAST/SKIN: She felt two lumps in her left breast and another lump on the sabianist of the right side of the face.. CARDIOVASCULAR: No chest pain, orthopnea, or paroxysmal nocturnal dyspnea (PND). No edema. No palpitations. GASTROINTESTINAL: No nausea or vomiting. No diarrhea or constipation. No change in bowel movements. No heartburn or swallowing difficulties. No abdominal pain. No jaundice. No hematemesis, melena or rectal bleeding. GENITOURINARY: No hematuria or dysuria. MUSCULOSKELETAL: She has pain in the shoulders from arthritis. NEUROLOGICAL: She has tingling and numbness in the hands. HEMATOLOGIC/LYMPHATIC: She is weak, tired and fatigued. SKIN: No skin rash or lumps. PSYCHIATRIC: No anxiety or depression. PHYSICAL EXAMINATION GENERAL: Looks stable. Well-developed, well-nourished, and in no acute distress. VITAL SIGNS: Blood pressure 143/83, pulse 85 per minute, respirations 16 per minute, temperature 97.3, pulse ox 95% on room air. HEENT: Head: Atraumatic. No sinus tenderness to palpation. There is a fatty lipoma on the sabianist of the right side of the face which is small, around 1 cm in diameter. Eyes: No icterus or conjunctivitis. Mouth and throat: No oral thrush or mucositis. NECK: Supple. No cervical or supraclavicular lymphadenopathy. LEFT BREAST: The palpable lymph node on the medial side of the left breast is again palpated firm and mildly tender, but it is of the same size, like her last visit, without any changes. LUNGS: Clear to auscultation and percussion bilaterally. HEART: Regular rate and rhythm. No gallops, murmurs, clicks or rubs. ABDOMEN: Soft and lax. No tenderness. No hepatosplenomegaly. No masses. EXTREMITIES: No cyanosis, clubbing or edema. LYMPHATICS: No peripheral lymphadenopathy. NEUROLOGICAL: Conscious, alert and oriented times three. No focal motor or sensory deficits. PSYCHIATRIC: Mood and affect appear normal. SKIN: No skin rash, bruise or purpuric eruption. No palpable breast masses or axillary adenopathy DIAGNOSTIC DATA CBC showed white count of 6.5, hemoglobin 14.6, hematocrit 44, platelets 226,000. Chem panel is totally normal except BUN 25, blood sugar 132. CA 27-29 is normal at 15.6, which is down from 19. ASSESSMENT 1. Stage IA (pT1b pN0 cM0) left breast invasive ductal carcinoma grade 1/3. Three sentinel lymph nodes were negative for metastasis. ER/KS positive, HER2/reinaldo negative. Ki-67 was low at 3.6%. Tumor was 0.6 cm. Patient finished adjuvant radiation therapy and she started adjuvant hormonal therapy with Arimidex 1 mg daily on May 23, 2016. She is tolerating treatment very well except for some hot flashes. Her tumor marker CA 27-29 is normal at 15.6, which is down from 19. I am planning to continue followup. I will see her again in three months with CBC, chem panel and CA 27-29. 2. Hypertension, on treatment. 3. Hypercholesterolemia, on treatment. PLAN 1. Continue Arimidex 1 mg daily. 2. Patient to return in three months with CBC, chem panel and CA 27-29. 3. Patient is to contact us for any new concerns or complaints. MTDD
== END 2018-07-02 ==
LOC: ONC 08:45
PROVIDERS: ATTEND Internal Medicine Hematology
DX: C50.912 Malignant neoplasm of unspecified site of left female breast (principal); M83 Adult osteomalacia; I10 Essential (primary) hypertension; E78.00 Pure hypercholesterolemia, unspecified; Z92.3 Personal history of irradiation; Z79.890 Hormone replacement therapy; R53.83 Other fatigue; R20.2 Paresthesia of skin; M06.9 Rheumatoid arthritis, unspecified; N95.1 Menopausal and female climacteric states; M25.511 Pain in right shoulder; M25.512 Pain in left shoulder
CPT/HCPCS: 36415; 85025; 86300; G0463; 82040; 82247; 82310; 82374; 82435; 82565; 82947; 84075; 84132; 84155; 84295; 84450; 84460; 84520; 99212

== ENCOUNTER → 2018-07-15 | Outpatient (CLI) | payer MEDICARE, BC ==
[2018-02-18 12:22] VITALS: BMI 37.5
--- NOTE | 2018-07-15 10:19 | RADIOLOGY IMAGING REPORT ---
FACILITY: [facility] PATIENT NAME: Ignacia Nails : 1940 MR: [id number] V: [id number] EXAM DATE: ORDERING PHYSICIAN: WILBUR LOPEZ TECHNOLOGIST: Location: [facility] - [place] Patient: Ignacia Nails : 1940 Visit/Account:[id number] Date of Sevice: 07/15/2018 Exam type: SHOULDER MIN 2 VIEWS RIGHT History: Fracture in right shoulder with surgery 15 years ago, pain for last two years, no new injury Comparison: CT of the chest January 30, 2018. Findings: An old posttraumatic deformity of the right humeral head and neck is again seen there is no evidence of acute fracture or dislocation. There are moderate to severe degenerative changes at the right gle nohumeral joint at the right AC joint IMPRESSION: 1. O posterior Figueroa of the right humeral head and neck is again seen with no evidence of acute fracture dislocation There are moderate to severe degenerative changes of the right glenohumeral joint and right AC joint Report Dictated By: Amberly Hawthorne MD at 07/15/2018 10:13 AM Report E-Signed By: Amberly Hawthorne MD at 07/15/2018 10:16 AM WSN:[email or web address]
== END ==
LOC: RAD 09:13
PROVIDERS: ATTEND Nurse Practitioner Family
DX: M19.011 Primary osteoarthritis, right shoulder (principal)

== ENCOUNTER → 2018-09-03 | Outpatient (CLI) | payer MEDICARE, BC ==
[2018-02-18 12:22] VITALS: BMI 37.5
--- NOTE | 2018-09-03 12:29 | RADIOLOGY IMAGING REPORT ---
FACILITY: [facility] PATIENT NAME: Ignacia Nails : 1940 MR: [id number] V: [id number] EXAM DATE: ORDERING PHYSICIAN: MARISABEL ELAINE TECHNOLOGIST: Location: [facility] - [place] Patient: Ignacia Nails : 1940 Visit/Account:[id number] Date of Sevice: 09/03/2018 CT of the right hip without contrast Indication: Hip pain. Fall. Comparison: None available Technique: Axial CT images were obtained through the right hip. Reformatted coronal and sagittal imag es were reviewed. One of the following dose optimization techniques was utilized in the performance of this exam: Autom ated exposure control; adjustment of the mA and/or kV according to the patient's size; or use of an i terative reconstruction technique. Specific details can be referenced in the facility's radiology C T exam operational policy. Findings: No acute fracture is seen at the right hip joint. There is severe right hip joint osteoarthritis iden tified. There is bony abutment along the superior and lateral weightbearing surfaces with extensive s ubchondral sclerosis and subchondral cyst formation. There are large protuberant osteophytes most pro nounced around the femoral head and neck junction. Slight remodeling of the femoral head and acetabul um at the site of bony abutment. No discrete collapse or fracture. Degenerative changes are noted at the pubic symphysis. No significant hip joint effusion is identified. No definitive joint bodies. There is no inguinal adenopathy. Musculature about the hip appears normal in attenuation/bulk. Within the included pelvis, there are multiple sigmoid colon diverticula seen. No free fluid. IMPRESSION: 1. No acute fracture at the right hip. 2. Severe right hip joint osteoarthritis with bony abutment and remodeling with subchondral sclerosis and cyst formation. 3. Sigmoid colon diverticulosis. Report Dictated By: Sudarshan Sherman at 09/03/2018 12:19 PM Report E-Signed By: Sudarshan Sherman at 09/03/2018 12:26 PM WSN:[id number]
== END ==
LOC: CT 00:06
PROVIDERS: ATTEND Physical Medicine & Rehabilitation Pain Medicine
DX: K57.30 Diverticulosis of large intestine without perforation or abscess without bleeding (principal); M25.551 Pain in right hip; Z96.642 Presence of left artificial hip joint; W19.XXXA Unspecified fall, initial encounter; M16.11 Unilateral primary osteoarthritis, right hip

== ENCOUNTER 2018-09-24 09:36 | Outpatient (RCR) | payer MEDICARE, BC ==
[2018-02-18 12:22] VITALS: Wt 94.4 kg
[2018-09-21 09:44] LABS: PLATELET COUNT, AUTOMATED 278 K/uL (150-450)
[2018-09-24 10:30] VITALS: BP 134/88
--- NOTE | 2018-09-24 11:45 | ONCOLOGY FOLLOW UP NOTE ---
EVENT DATE: September 24, 2018 DIAGNOSES 1. Left breast cancer. 2. Hypertension. 3. Hypercholesterolemia. CHIEF COMPLAINT Patient is here today for followup of her left breast cancer. ONCOLOGY HISTORY The patient is a 78-year-old female who was found to have abnormal mammogram of the left breast. The patient ended by having left breast biopsy done on January 16, 2016 and the biopsy came back positive for infiltrating ductal carcinoma, grade II-III. ER positive 84.1%, NV positive 84.3%. HER2/reinaldo negative. Ki-67 was 3.6 and p53 was 0.1%. The patient, after that, had wire localization lumpectomy and sentinel lymph node biopsy done on February 22, 2016. The pathology came back positive for 1.1 cm invasive ductal carcinoma, well-differentiated. Three sentinel lymph nodes came back negative; so, her tumor in general was positive for invasive ductal carcinoma, grade I, well-differentiated. The size of the tumor is 0.6 cm. Additional margins were taken also and came back negative. Three sentinel lymph nodes came back negative for metastasis. So, her tumor was staged as stage IA (pt1b N0 M0). The patient received adjuvant radiation therapy and tolerated treatment very well. She started adjuvant hormonal therapy with Arimidex 1 mg daily on May 23, 2016. HISTORY OF PRESENT ILLNESS Patient is here today for followup of her left breast cancer. She is doing fine currently. She is tolerating Arimidex very well except for some hot flashes. She has occasional tingling and numbness in her hands. She has also occasional dizziness when she stands up but other than that the patient is doing really very well. PAST MEDICAL HISTORY Hypertension. PAST SURGICAL HISTORY 1. Left hip replacement. 2. Right knee replacement. 3. Tonsillectomy. 4. Right shoulder repair. 5. Appendectomy. FAMILY HISTORY Negative for cancer or blood diseases. SOCIAL HISTORY The patient is a with two children. 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 She quit smoking in 1991 after 1-1/2 packs a day for nearly over thirty years. Denies any abuse of alcohol or illicit drugs. CURRENT MEDICATIONS 1. Iron 100-Vitamin C tablet, one tablet daily. 2. Multivitamins one tablet daily. 3. Dicyclomine hydrochloride 10 mg daily. 4. Folic acid 1 mg daily. 5. Atorvastatin 20 mg daily. 6. Sulfasalazine 500 mg daily. 7. Anastrazole 1 mg daily. ALLERGIES ASPIRIN, which causes itchy skin rash. REVIEW OF SYSTEMS CONSTITUTIONAL: The patient has some hot flashes. HEENT: Ears: No tinnitus or hearing problem. Nose: No nasal discharge or epistaxis. Throat: No sore throat or mouth ulcers. Eyes: No diplopia or visual changes. RESPIRATORY/BREAST/SKIN: She felt two lumps in her left breast and another lump on the hindu of the right side of the face.. CARDIOVASCULAR: No chest pain, orthopnea, or paroxysmal nocturnal dyspnea (PND). No edema. No palpitations. GASTROINTESTINAL: No nausea or vomiting. No diarrhea or constipation. No change in bowel movements. No heartburn or swallowing difficulties. No abdominal pain. No jaundice. No hematemesis, melena or rectal bleeding. GENITOURINARY: No hematuria or dysuria. MUSCULOSKELETAL: She has pain in the shoulders from arthritis. NEUROLOGICAL: She has occasional tingling and numbness in her hands and dizzy sometimes, especially when standing up from sitting position. HEMATOLOGIC/LYMPHATIC: She is weak, tired and fatigued. SKIN: No skin rash or lumps. PSYCHIATRIC: No anxiety or depression. PHYSICAL EXAMINATION GENERAL: Looks stable. Well-developed, well-nourished, and in no acute distress. VITAL SIGNS: Blood pressure 134/88, pulse 101 per minute, respirations 16 per minute, temperature 98.6, pulse ox 91% on room air. HEENT: Head: Atraumatic. No sinus tenderness to palpation. There is a fatty lipoma on the hindu of the right side of the face which is small, around 1 cm in diameter. Eyes: No icterus or conjunctivitis. Mouth and throat: No oral thrush or mucositis. NECK: Supple. No cervical or supraclavicular lymphadenopathy. LEFT BREAST: The palpable lymph node on the medial side of the left breast is again palpated firm and mildly tender, but it is of the same size, like her last visit, without any changes. LUNGS: Clear to auscultation and percussion bilaterally. HEART: Regular rate and rhythm. No gallops, murmurs, clicks or rubs. ABDOMEN: Soft and lax. No tenderness. No hepatosplenomegaly. No masses. EXTREMITIES: No cyanosis, clubbing or edema. LYMPHATICS: No peripheral lymphadenopathy. NEUROLOGICAL: Conscious, alert and oriented times three. No focal motor or sensory deficits. PSYCHIATRIC: Mood and affect appear normal. SKIN: No skin rash, bruise or purpuric eruption. No palpable breast masses or axillary adenopathy DIAGNOSTIC DATA CBC showed white count of 7.9, hemoglobin 14, hematocrit 42.4, platelets 278,000. Chem panel is totally normal except BUN 25. CA 27-29 is 19.8 ASSESSMENT 1. Stage IA (pT1b pN0 cM0) left breast invasive ductal carcinoma grade 1/3. Three sentinel lymph nodes were negative for metastasis. ER/NV positive, HER2/reinaldo negative. Ki-67 was low at 3.6%. Tumor was 0.6 cm. Patient finished adjuvant radiation therapy and she started adjuvant hormonal therapy with Arimidex 1 mg daily on May 23, 2016. She is tolerating treatment very well except for some hot flashes. Her CA 27-29 is really normal at 19.8. I am planning to continue followup. I will see her again in three months with CBC, chem panel and CA 27-29. 2. Hypertension, on treatment. 3. Hypercholesterolemia, on treatment. PLAN 1. Continue Arimidex 1 mg daily. 2. Patient to return in three months with CBC, chem panel and CA 27-29. 3. Patient is to contact us for any new concerns or complaints. MTDD
[2018-10-08] MEDS ORDERED: LOSA50TA80 PO (11:56)
== END 2018-10-07 12:25 | disposition home or self-care (01) ==
LOC: ONC 09:36
PROVIDERS: ATTEND Internal Medicine Hematology
DX: C50.912 Malignant neoplasm of unspecified site of left female breast (principal); Z78.0 Asymptomatic menopausal state; M83 Adult osteomalacia; Z79.811 Long term (current) use of aromatase inhibitors
CPT/HCPCS: 36415; 85025; 86300; G0463; 82040; 82247; 82310; 82374; 82435; 82565; 82947; 84075; 84132; 84155; 84295; 84450; 84460; 84520; 99212

== ENCOUNTER → 2018-12-23 | Outpatient (CLI) | payer MEDICARE, BC ==
[2018-02-18 12:22] VITALS: BMI 37.5
[~2018-12-23] MED LIST changes: +CEPH-13 PO
--- NOTE | 2018-12-23 08:58 | EKG ---
FACILITY: [facility] PATIENT NAME: JENNIFER HALL : [id number] MR: [id number] V: [id number] EXAM DATE: ORDERING PHYSICIAN: WILBUR LOPEZ TECHNOLOGIST: Test Reason : Pre-op Blood Pressure : / mmHG Vent. Rate : 087 BPM Atrial Rate : 087 BPM P-R Int : 172 ms QRS Dur : 084 ms QT Int : 376 ms P-R-T Axes : 059 059 074 degrees QTc Int : 452 ms Sinus rhythm Probable left atrial enlargement Poor R wave progression anteriorly Fairly similar to previous EKG Confirmed by MAGNO LACEY ([id number]) on 12/23/2018 9:55:24 AM Referred By: Confirmed By:MAGNO LACEY
== END ==
LOC: LAB 08:00
PROVIDERS: ATTEND Nurse Practitioner Family
DX: Z01.812 Encounter for preprocedural laboratory examination (principal); Z01.818 Encounter for other preprocedural examination; I10 Essential (primary) hypertension
CPT/HCPCS: 81001; 87088; 93005

== ENCOUNTER → 2019-01-06 | Outpatient (CLI) | payer MEDICARE, BC ==
[2018-02-18 12:22] VITALS: BMI 37.5
== END ==
LOC: SPU 08:11
PROVIDERS: ATTEND Nurse Practitioner Family
DX: Z01.818 Encounter for other preprocedural examination (principal); I10 Essential (primary) hypertension; E78.5 Hyperlipidemia, unspecified
CPT/HCPCS: 82465; 83718; 84443; 84478

== ENCOUNTER 2019-01-19 01:20 | Inpatient (IN) | payer MEDICARE, BC ==
[2019-01-18 16:01] LABS: INR 0.97
--- NOTE | 2019-01-18 18:46 | NUR ---
DR. DE LEÓN WAS NOTIFIED AND STATED HE WAS FINE TO CONTINUE WITH THE OR INJECTION WITH PATIENTS ALLERGY TO ASPIRIN
[2019-01-19] VITALS (13 sets, daily range): BP systolic 111–140; BP diastolic 61–93
[~2019-01-19] VITALS: Ht 157.5 cm; Wt 91.2 kg
[2019-01-19] MEDS ORDERED: fentaNYL CITR 100 MCG/2 ML AMP ONE (07:12)
[2019-01-19] MEDS ORDERED: KETAMINE HCL-NS 50 MG/5 ML SYR ONE (07:12)
[2019-01-19] MEDS ORDERED: PROPOFOL EMUL(*) 10MG/ML 20 ML 20 ML ONE (07:13)
[2019-01-19] MEDS ORDERED: DEXAMETHASONE SOD PHOS 10MG/ML ONE (07:13)
[2019-01-19] MEDS ORDERED: ONDANSETRON 4 MG/2 ML VIAL ONE (07:13)
[2019-01-19] MEDS ORDERED: ACETAMINOPHEN 500 MG TAB PO ONE (07:15)
[2019-01-19] MEDS ORDERED: MIDAZOLAM 2 MG/2 ML VIAL IVP PRN (07:15)
[2019-01-19] MEDS ORDERED: FAMOTIDINE 20 MG TAB PO ONE (07:15)
[2019-01-19] MEDS ORDERED: BACITRACIN 50000 UNIT/VIAL 100,000 UNIT in NS 0.9% 3000 ML IRRIGATION BAG 3,000 ML IR ONE (07:15)
[2019-01-19] MEDS ORDERED: ceFAZolin(*) 2GM/D5W 50ML 50 ML IVPB ONE (07:15)
[2019-01-19] MEDS ORDERED: CELECOXIB 200 MG CAP PO ONE (07:15)
[2019-01-19] MEDS ORDERED: ROPIVACAINE/EPI/CLONIDINE/KET 50 ML SYRINGE INJ ONE ×2 (07:15)
[2019-01-19] MEDS ORDERED: TRANEXAMIC AC 1000 MG/10ML SDV 1,000 MG in DEXTROSE 5% 50 ML BAG 50 ML IV ONE (07:15)
[2019-01-19] MEDS ORDERED: PREGABALIN 75 MG CAPSULE PO ONE (07:15)
[2019-01-19] MEDS ORDERED: NORMOSOL R SOLN(*) 1000 ML BAG 1,000 ML IV PRN (07:15)
[2019-01-19] MEDS ORDERED: LIDOCAINE/SOD BICARB 8.4% SYR ID ONE (07:15)
[2019-01-19] MEDS ORDERED: NS(*) 0.9% 100 ML BAG 100 ML ONE (07:59)
[2019-01-19] MEDS ORDERED: diphenhydrAMINE 25 MG CAP PO PRN (10:10)
[2019-01-19] MEDS ORDERED: ONDANSETRON 4 MG/2 ML VIAL IVP PRN (10:10)
[2019-01-19] MEDS ORDERED: diphenhydrAMINE 50 MG/ML VIAL IVP PRN (10:10)
[2019-01-19] MEDS ORDERED: ZOLPIDEM TARTRATE 5 MG TAB PO PRN (10:10)
[2019-01-19] MEDS ORDERED: HYDROmorphone HCL 2 MG/ML SDV IVP PRN (10:10)
[2019-01-19] MEDS ORDERED: BISACODYL 10 MG SUPP PR PRN (10:10)
[2019-01-19] MEDS ORDERED: MAGNESIUM CITRATE 300 ML BTL PO PRN (10:10)
[2019-01-19] MEDS ORDERED: FLUSH 10 ML SYR IVP PRN (10:10)
[2019-01-19] MEDS ORDERED: MAGNESIUM HYDROXIDE* 30ML UDCP PO PRN (10:10)
[2019-01-19] MEDS ORDERED: LR 1000 ML BAG 1000 ML IV PRN (10:10)
[2019-01-19] MEDS ORDERED: PROMETHAZINE 25 MG/ML 1 ML AMP IVP PRN (10:10)
--- NOTE | 2019-01-19 11:21 | RADIOLOGY IMAGING REPORT ---
FACILITY: [facility] PATIENT NAME: Ignacia Nails : 1940 MR: [id number] V: [id number] EXAM DATE: ORDERING PHYSICIAN: SANDI DE LEÓN TECHNOLOGIST: Location: [facility] - [place] Patient: Ignacia Nails : 1940 Visit/Account:[id number] Date of Sevice: 01/19/2019 Exam type: HIP IN OR RIGHT History: RIGHT TOTAL HIP ARTHROPLASTY Comparison: CT of the right hip September 03, 2018. Findings: There is a trial right hip arthroplasty in place. Lap sponge marker projects over the right groin on this intraoperative view. Left hip arthroplasty is also noted IMPRESSION: 1. As above Report Dictated By: Amberly Hawthorne MD at 01/19/2019 11:11 AM Report E-Signed By: Amberly Hawthorne MD at 01/19/2019 11:12 AM WSN:[id number]
--- NOTE | 2019-01-19 11:22 | RADIOLOGY IMAGING REPORT ---
FACILITY: [facility] PATIENT NAME: Ignacia Nails : 1940 MR: [id number] V: [id number] EXAM DATE: ORDERING PHYSICIAN: SANDI DE LEÓN TECHNOLOGIST: Location: [facility] - [place] Patient: Ignacia Nails : 1940 Visit/Account:[id number] Date of Sevice: 01/19/2019 Exam type: PELVIS History: POST OP R MARLINE Comparison: CT of the right hip September 03, 2018. Findings: There is a new right hip arthroplasty that appears in good anatomic alignment on this single AP view. Soft tissue gas projects over the lateral aspect of this postoperative right hip. An existing left arthroplasty is noted as was present on the topogram from the prior CT IMPRESSION: 1. As above Report Dictated By: Amberly Hawthorne MD at 01/19/2019 11:10 AM Report E-Signed By: Amberly Hawthorne MD at 01/19/2019 11:11 AM WSN:[email or web address]
--- NOTE | 2019-01-19 11:43 | OPERATIVE REPORT 1 ---
EVENT DATE: January 19, 2019 SURGEON: Alvin Blackmon MD ANESTHESIOLOGIST: Nathaniel Breaux MD ANESTHESIA: General plus spinal. 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 POSTOPERATIVE DIAGNOSIS Right hip osteoarthritis. PROCEDURE PERFORMED Right total hip arthroplasty. FINDINGS The patient had a significant amount of arthritic changes associated with the hip but then was amenable for a total hip replacement. ESTIMATED BLOOD LOSS 200 mL. DRAINS None. COMPLICATIONS None. TOURNIQUET TIME Not applicable. IMPLANTS USED Gina ML taper size 7.5 standard stem with a 3 +0 ceramic head, a 36 neutral liner and a 52 mm Trabecular Metal Continuum cup with a cluster hole for screws. We then also put in a dome-hole plug and screw-hole plugs. INDICATIONS AND HISTORY This patient is a 78-year-old female that presented to my clinic for evaluation of right hip pain and irritation going on for some time. She continued to have pain and irritation despite conservative management and when she continued to have issues associated with this she wanted to go ahead with a total hip arthroplasty today, January 19, 2019. The risks and benefits were discussed with the patient and informed consent was obtained at the last clinic visit and we got her set up to do this today. She understood she may have some leg length discrepancy and issues associated with postoperative complications and even dislocation. After discussion of those risks and benefits, informed consent was obtained at the last clinic visit and we got her set up to do this today. DESCRIPTION OF PROCEDURE The patient was brought into the operating room. She and the procedure were both verified. She was placed supine on the operating table and induced and intubated by Anesthesia. After being given a spinal, she was then turned in the lateral decubitus position with the right hip towards the ceiling and then the right hip was prepped and draped in the usual fashion. A time-out was observed, verifying the correct patient and procedure. The standard posterior lateral incision was made over the skin and subcutaneous tissue until I got down over the greater trochanter. I was then able to cut through the IT band and the gluteal musculature in order to get down to the hip socket itself. Once I was able to identify the short external rotators, I then cut and tagged the piriformis for later repair through the greater trochanter and then also cut some of the short external rotators to gain access to the capsule. Once I gained access to the capsule, I made a high T-cut on the capsule itself and then peeled that back and then dislocated the hip without any difficulty. We then cut off the femoral head in accordance with the Gina System. I then was able to retract the femur anteriorly by straightening out the leg. We then put in an inferior retractor and then a superior retractor and tagged the capsule for later repair. I then removed the labrum with sharp dissection and removed the rest of the ligament in the base of the acetabulum. Once this was done, I then commenced reaming, which was a [address] up to a 51 mm reamer. We still had a good back wall and fit associated with this and good bleeding bone so therefore a 52 mm cluster-hole shell, Trabecular Metal Continuum Shell for Gina was then utilized. I then put this in without any difficulty. It felt well. We did not need a screw so I put in a dome-hole plug and three screw-hole plugs without any issues. I then put in the liner without any issues. I then irrigated with Irrisept, which I had done throughout the case, and also pulsatile lavage with Bacitracin mixed in and irrigated throughout and then let that sit and then turned my attention to the femur. Once on the femur, I was able to flex and internally rotate it until I got to where I could use the box cutting osteotome followed by the canal finder and then lateralizing reamer. We then subsequently broached starting at a [address] up to a 7.5, which had excellent fit. We then used the calcar reamer to plane it down a little bit and then utilized this as the trial stem. I put on a standard head and neck associated with this with a 36 head to match the liner and then relocated it. It had good shuck, excellent leg length by clinical exam and no signs of problems with instability in that she could flex and internally rotate to about 70 degrees before she started to show any signs of instability. I then irrigated again with copious amounts of saline and then took intraoperative x-rays. Intraoperative x-rays confirmed the leg lengths were good and the cup was in good position so, therefore, these were the final components chosen. I then dislocated everything, took out the trial components and then was able to put in the standard stem with 7.5 standard offset stem. I then put on the Biolox head without any difficulty and then relocated and put it through the range of motion again and everything looked excellent. I then closed the capsule with a heavy Ethibond suture. This was then followed by repair of the piriformis through drill holes in the posterior aspect of the troch. I then irrigated again, closed the IT band and gluteal musculature with an 0 Quill. This was then followed by 2-0 Vicryl in the fat layer and then a 2-0 Stratafix in the skin followed by 4-0 Monocryl in interrupted subcuticular fashion. This was then dressed with a bio-occlusive dressing and then the patient was put in a hip wrap, was turned over on her back, awakened and extubated and transferred to PACU in stable condition, where she will stay overnight. LEEROY
--- NOTE | 2019-01-19 14:24 | Hospitalist Consultation ---
History of Present Illness Requesting Physician Dr. Blackmon Reason for Consult Management of HTN, Hyperlipidemia, and other chronic conditions. Chief Complaint R. Total Knee Replacement History of Present Illness 78 y/o female here for Right Total Knee Replacement with Dr. Blackmon. 200cc EBL during the procedure. No other surgical complications or issues reported. She has a history significant for an past MD. She had a workup for a prior surgery that revealed an old MD, she was unaware. She also has hypertension, hyperlipidemia, Crohns, and past Breast Cancer. History Problems: (1) HTN (hypertension) Status: Chronic (2) Hyperlipidemia Status: Chronic (3) Crohn disease Status: Chronic (4) Breast cancer, left breast Status: Chronic Home Meds Active Scripts Folic Acid (FOLIC ACID) 1 Mg Tablet, 1 TAB PO QDAY, #90 TAB 0 Refills Prov:WILBUR LOPEZ APRNP-C 01/15/19 Dicyclomine Hcl (DICYCLOMINE HCL) 10 Mg Capsule, 1 CAP PO DAILY, #90 CAPSULE 1 Refill Prov:WILBUR LOPEZ APRN-C 01/12/19 Hydrochlorothiazide (HYDROCHLOROTHIAZIDE) 12.5 Mg Tablet, 1 TAB PO QDAY, #90 TAB 0 Refills Prov:WILBUR LOPEZ APRN-C 11/30/18 Sulfasalazine (SULFASALAZINE) 500 Mg Tablet, 1 TAB PO DAILY, #90 TAB 1 Refill Prov:WILBUR LOPEZ APRN-C 11/24/18 Atorvastatin Calcium (LIPITOR) 20 Mg Tablet, 1 TAB PO QDAY, #90 TAB 0 Refills Prov:WILBUR LOPEZ APRN-C 11/24/18 Losartan Potassium (LOSARTAN POTASSIUM) 50 Mg Tablet, 1 TAB PO QDAY, #90 TAB 1 Refill Prov:WILBUR LOPEZ APRN-C 10/08/18 Anastrozole (ANASTROZOLE) 1 Mg Tablet, 1 MG PO DAILY, #90 MG 3 Refills Prov:SOPHY WARREN INTELLIGENCE CLERK-BC, ONC 05/12/17 Reported Medications Iron,Carbonyl/Ascorbic Acid (IRON 100-VITAMIN C TABLET) 1 Each Tablet, 1 EACH PO QDAY 01/07/17 Calcium Carb & Cit/Vitamin D3 (CALCIUM + D3 ER TABLET) 1 Each Tablet.er, 1 TAB PO DAILY 01/07/17 Multivitamin (MULTI VITAMIN DAILY) 1 Each Tablet, 1 EACH PO DAILY 02/13/16 Discontinued Scripts Cephalexin (KEFLEX) 500 Mg Capsule, 1 CAP PO BID, #14 CAP 0 Refills Prov:HAILEELilianaWILBUR HESS APRN INTELLIGENCE CLERK-C 12/23/18 Rivaroxaban (XARELTO 10 MG TAB (OR EQUIV)) 10 Mg Tablet, 10 MG PO QDAY, #10 TAB Prov:ADELE SERRANO INTELLIGENCE CLERK 02/18/18 Allergies: Coded Allergies: aspirin (Verified Allergy, Severe, ANAPHYLAXIS-BREAKS OUT IN A RASH, 02/10/18) Patient History: COPD (chronic obstructive pulmonary disease) MOTHER Coronary artery bypass surgery MOTHER Hx Smoking: Yes (quit 1990-smoked 1 pack per week 40yr) Smoking Status: Former Smoker Exposure to Second Hand Smoke?: No Caffeine Intake: Coffee, Tea Caffeine/Cups Per Day: 1 cup/day, 30 oz of tea/day Hx Alcohol Use: Yes Hx Substance Use Disorder: No Social Drug Use: Never Review of Systems All Systems Reviewed/Normal: Yes, Except as Noted Musculoskeletal: Other (pain and limited mobility due to surgery. ) Exam Vital Signs Vital Signs Date Time Temp Pulse Resp B/P (MAP) Pulse Ox O2 Delivery O2 Flow Rate FiO2 01/19/19 13:00 94 126/73 (90) 91 Nasal Cannula 2.0 01/19/19 11:25 97.6 12 General Appearance: Awake, No Acute Distress, Other (drowsy) Cardiovascular: Regular Rate and Rhythm Respiratory: No Respiratory Distress, Clear to Auscultation GI: Abd Soft and Non-Tender Psych: Alert & Oriented X3, Appropriate Mood & Affect Assessment and Plan Problems: (1) Status post right hip replacement Assessment & Plan: Surgical replacement by Dr. Blackmon on 01/19. 200cc EBL. Will be on Xarelto for postop anticoagulation, as she has an allergy to aspirin. Will hold Xarelto at this time due to bleeding risk and EBL during the procedure. Will consider restarting when no signs of continued bleeding. (2) HTN (hypertension) Status: Chronic Assessment & Plan: Chronic management with Losartan/HCTZ continued with parameters. (3) Hyperlipidemia Status: Chronic Assessment & Plan: Chronic treatment with Lipitor continued. (4) History of breast cancer Assessment & Plan: History of Breast Cancer. On Chronic treatment with Anastrazole to decrease risk of recurrence. (5) Crohn disease Status: Chronic Assessment & Plan: Will continue chronic treatment with Dicyclomine and Sulfasalazine. Venous Thromboembolism Antithrombotics Is Pt On Any Antithrombotics?: No Exam Sepsis Risk: No Definite Risk DIANNA MITCHELL Jan 19, 2019 14:24
--- NOTE | 2019-01-19 17:14 | NUR ---
Physical Therapy Impression PT eval completed followed by ambulation to/from doorway with FWW and SBA/CGA. Pt requires Min/CGA for bed mobility and CGA/SBA for sit to/from stand transfers. Pt recalls MARLINE precautions well and plans to d/c tomorrow after addressing stairs. Out pt PT scheduled for Friday. Physical Therapy Goals 1. Pt to be Min/CGA for bed mobility and sup<>sit trnsfrs 2. Pt to be CGA/SBA for sit to/from stand transfers 3. Pt to be SBA/Mod indep to ambulate with 4WW x 100' 4. Pt to demo safety with up/down platform step x 2 reps to simulate entry to home with SBA/CGA. 5. Pt to demo understanding and compliance with posterior hip precautions. Patient's Goals
[2019-01-19] MEDS: ceFAZolin(*) 2GM/D5W 50ML 50 ML IVPB SCH (17:59)
[2019-01-19] MEDS: oxyCODON/ACET (*)5/325MG (CII) 1 TAB TAB PO PRN ×2 (18:58→23:09)
[2019-01-20] MEDS: ceFAZolin(*) 2GM/D5W 50ML 50 ML IVPB SCH ×2 (00:29→09:37)
[2019-01-20 03:33] VITALS: BP 135/81
[2019-01-20 06:48] VITALS: BP 120/73
[2019-01-20] MEDS ORDERED: ATORVASTATIN 10 MG TAB PO SCH (09:00)
[2019-01-20] MEDS ORDERED: RIVAROXABAN 10 MG TAB PO SCH (09:00)
[2019-01-20] MEDS ORDERED: DICYCLOMINE HCL 10 MG CAP PO SCH (09:00)
[2019-01-20] MEDS ORDERED: HYDROCHLOROTHIAZIDE 25 MG TAB PO SCH ×2 (09:00)
[2019-01-20] MEDS ORDERED: sulfaSALAzine 500 MG TAB PO SCH (09:00)
[2019-01-20] MEDS ORDERED: ANASTROZOLE 1 MG TAB PO SCH (09:00)
[2019-01-20] MEDS ORDERED: LOSARTAN POTASSIUM 50 MG TAB PO SCH ×2 (09:00)
[2019-01-20 09:40] VITALS: BP 122/66
[2019-01-20 09:47] VITALS: Ht 157.5 cm; Wt 91.2 kg
[2019-01-20] MEDS ORDERED: RIV10 PO (10:10)
[2019-01-20] MEDS ORDERED: OXYC-865 PO (10:12)
--- NOTE | 2019-01-20 10:30 | NUR ---
Occupational Therapy Impression Pt alert, agreeable to OT tx. Recalling 3/3 posterior hip precautions. Mod (I) LB dressing. Discussed AE needs, pt educated on where to obtain a shearer screen measurer and trimmer/sock aid if desired. Pt does not wear socks, has slip on shoes and walk-in shower. Reports family will assist with all ADLs/IADLs. Pt has met all skilled OT goals and presents with no further questions/concerns at this time. Occupational Therapy Goals Patient's Goal
--- NOTE | 2019-01-20 10:56 | NUR ---
Physical Therapy Impression PT goals met and from a mobility standpoint pt is ready for discharge. Physical Therapy Goals 1. Pt to be Min/CGA for bed mobility and sup<>sit trnsfrs 2. Pt to be CGA/SBA for sit to/from stand transfers 3. Pt to be SBA/Mod indep to ambulate with 4WW x 100' 4. Pt to demo safety with up/down platform step x 2 reps to simulate entry to home with SBA/CGA. 5. Pt to demo understanding and compliance with posterior hip precautions. Patient's Goals
--- NOTE | 2019-01-20 11:22 | Hospitalist Progress Note ---
Subjective Progress Notes Subjective She was admitted s/p hip replacement. She had no acute events overnight. Patient Complains of: Cardiovascular: No: Chest Pain Respiratory: No: Shortness of Breath Physical Exam Vital Signs Date Time Temp Pulse Resp B/P (MAP) Pulse Ox O2 Delivery O2 Flow Rate FiO2 01/20/19 09:40 122/66 (84) Nasal Cannula 2.0 01/20/19 09:01 92 01/20/19 06:48 97.7 90 14 Intake and Output 01/20/19 01:03 Intake Total 3620 ml Output Total 150 ml Balance 3470 ml Intake Oral 1120 ml IV Total 1250 ml Other 1250 ml Output Estimated Blood Loss 150 ml # Voids 1 General Appearance: Alert, Awake, No Acute Distress, Afebrile Neuro: No Gross deficits Cardiovascular: Regular Rate and Rhythm Respiratory: No Respiratory Distress, Clear to Auscultation GI: Soft and Non-Tender Psych: Alert & Oriented X3, Appropriate Mood & Affect Result Diagram: 01/20/19 0520 Assessment and Plan Problems: (1) Status post right hip replacement Assessment & Plan: Surgical replacement by Dr. Blackmon on 01/19. 200cc EBL. Will be on Xarelto for postop anticoagulation, as she has an allergy to aspirin. (2) HTN (hypertension) Status: Chronic Assessment & Plan: Chronic management with Losartan/HCTZ continued with parameters. (3) Hyperlipidemia Status: Chronic Assessment & Plan: Chronic treatment with Lipitor continued. (4) History of breast cancer Assessment & Plan: History of Breast Cancer. On Chronic treatment with Anastrazole to decrease risk of recurrence. (5) Crohn disease Status: Chronic Assessment & Plan: Will continue chronic treatment with Dicyclomine and Sulfasalazine. Exam Sepsis Risk: No Definite Risk ADELE SERRANO CARAMEL CANDY MAKER HELPER Jan 20, 2019 11:22
== END 2019-01-20 12:15 | disposition home or self-care (01) | DRG 470 ==
LOC: OR 01:20 → MED 11:20
PROVIDERS: ADMIT Orthopaedic Surgery; ATTEND Orthopaedic Surgery
PROC: 0SR904A Replacement of Right Hip Joint with Ceramic on Polyethylene Synthetic Substitute, Uncemented, Open Approach (ICD-10-PCS; principal; 2019-01-19 07:43)
DX: M16.11 Unilateral primary osteoarthritis, right hip (principal); K50.90 Crohn's disease, unspecified, without complications; I25.10 Atherosclerotic heart disease of native coronary artery without angina pectoris; I10 Essential (primary) hypertension; I25.2 Old myocardial infarction; E78.5 Hyperlipidemia, unspecified; Z88.8 Allergy status to other drugs, medicaments and biological substances; Z85.3 Personal history of malignant neoplasm of breast; Z87.891 Personal history of nicotine dependence
CPT/HCPCS: 36415; 72170; 85014; 85018; 85610; 86850; 86900; 86901; 97161; 97165; J0690; J1100; J2405; J2704; J3010; J3490; J7050; J7060